=== PATIENT | male | born 1990 | race Caucasian/White ===

== ENCOUNTER 2020-03-17 20:38 | Inpatient (IN) | payer BC, MEDICAID, SELFPAY ==
[2020-03-17] VITALS (7 sets, daily range): BP systolic 124–138; BP diastolic 80–104; PULSE 102–136; RESP 14–36; TEMP 37.4; O2SAT 98–100
--- NOTE | ~2020-03-17 | XR_ITS ---
EXAMINATION: XR chest 1V portable EXAM DATE: 03/17/2020 23:54 INDICATION: Lactic acidosis. Confusion, hypokalemia. Gastroenteritis. TECHNIQUE: Portable AP frontal chest x-ray was obtained. There is no prior study for comparison. FINDINGS: The lungs are clear. There are no pleural effusions. The cardiomediastinal silhouette is within normal limits. There is no pneumothorax suspected. The bones and soft tissues are unremarkab le. IMPRESSION: Unremarkable chest x-ray exam. Reviewed, dictated and finalized at location G.
--- NOTE | ~2020-03-17 | CT_ITS ---
EXAMINATION: CT brain wo con EXAM DATE: 03/17/2020 21:18 INDICATION: Confusion. TECHNIQUE: Spiral CT of the head was performed without contrast. Axial, coronal and sagittal images were reviewed. The dose-length product (DLP) for this examination was 681.00 mGy-cm. The exposure w as tailored according to patient size, and iterative reconstruction (ASIR) was used as additional dos e reduction technique. There is no prior study for comparison. FINDINGS: There is no acute intraparenchymal hemorrhage. No evidence of intraparenchymal brain mass lesion. No evidence of acute infarction. There is no mass effect or midline shift. The ventricles are normal in size. There are no extra-axial collections. There are no acute calvarial fractures. T he orbits are unremarkable. Soft tissue is unremarkable. The visualized sinuses and mastoid air doris ls are well aerated. IMPRESSION: 1. Normal head CT examination. Reviewed, dictated and finalized at location A.
--- NOTE | ~2020-03-17 | XR_ITS ---
EXAMINATION: XR lumbar puncture diagnostic DATE: 03/18/2020 13:34 INDICATION: Encephalopathy TECHNIQUE: The procedure including the risks and benefits was discussed with the patient. Risks discu ssed included spinal headache, cerebrospinal fluid leak, bleeding, and infection. The patient underst ood the risks and agreed to proceed. A timeout was performed to verify the patient's name, date of , and procedure to be performed. The skin overlying the L4-L5 level was prepped and draped in usual sterile fashion. Subcutaneous 1% lidocaine was used for local anesthesia. A 22 gauge spinal n eedle was advanced under fluoroscopic guidance. The needle was removed and the entry site was cleaned and dressed. There were no immediate complications. FINDINGS: Real-time fluoroscopy demonstrates the needle at the L4-L5 level. Opening pressure was 11 c m water. (Normal range is variably defined as 6-20 cm water and up to 25 cm water in obese patients. Pressure >25 cm water is one of the modified Dandy criteria for idiopathic intracranial hypertension) . 13 mL of clear, colorless fluid was collected in 4 tubes. IMPRESSION: 1. Successful fluoro-guided lumbar puncture with opening pressure of 11 cm water and with collection of 13 mL clear colorless fluid. Reviewed, dictated and finalized at location A. IMPRESSION: 1. Successful fluoro-guided lumbar puncture with opening pressure of 11 cm wate r and with collection of 13 mL clear colorless fluid.
--- NOTE | ~2020-03-17 | US_ITS ---
EXAMINATION: US right upper quadrant DATE: 03/18/2020 09:08 INDICATION: Elevated liver function tests TECHNIQUE: Multiple grayscale and Doppler ultrasound images of the abdomen were obtained. COMPARISON: None available FINDINGS: The head and and body of the pancreas are normal. The pancreatic tail is obscured by bowel gas. The liver is normal with normal echogenicity and echotexture. No surface nodularity. Normal hepa topetal flow in the main portal vein. The gallbladder is normal with no abnormal wall thickening, per icholecystic fluid or stones. The normal common bile duct measures 4 mm. There was no sonographic Mur phy sign. IMPRESSION: 1. Normal sonographic study of the gallbladder. Reviewed, dictated and finalized at location A.
--- NOTE | 2020-03-17 20:45 | ECG_ITS ---
Measurements Intervals [place] Rate: 127 P: 67 W[place]: 149 QRS: 66 QRSD: 93 T: 49 QT: 367 QTc: 535 Interpretive Statements SINUS TACHYCARDIA MINIMAL Q WAVES- INFERIOR LEADS ANTEROLATERAL INFARCT, AGE INDETERMINATE NONSPECIFIC ST ABNORMALITY- INFERIOR LEADS BASELINE ARTIFACT- I, AVL ABNORMAL ECG Electronically Signed On 03-18-2020 7:45:35 CDT by Santino Caruso D.O.
--- NOTE | 2020-03-17 20:56 | ED.AMS ---
HPI - Altered Mental Status General Chief Complaint: Altered Mental Status Stated Complaint: AMS Time Seen by Provider: 03/17/20 20:48 History of Present Illness HPI narrative: Patient presents with his mother for confusion. She said that she was talking to him on the phone and then he did not know how he was. When I ask him why he is here he does not know. He denies any pain. He denies any illness. He does not know the year, where he, or his mother. His mother said he has been very sick with a stomach ulcer with vomiting and diarrhea. She said is not been eating. He was given medication that he vomited. 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 He has been losing weight. He was diagnosed ADHD in high school. His mother says that he is an alcoholic but has not had any alcohol since October. His surgical history includes circumcision and wisdom teeth. He smokes cigarettes but she does not know if he does drugs. complaint: altered mental status, confusion and decreased responsiveness Onset (ago): hour(s) Timing confirmed by: family member Severity: moderate Consistency of symptoms: constant Context: alcohol abuse, drug abuse and other (Vomiting and diarrhea) Associated symptoms: denies other symptoms Treatments prior to arrival: other (None) Related Data Allergies Allergy/AdvReac Type Severity Reaction Status Date / Time No Known Allergies Allergy Verified 01/21/20 15:13 Review of Systems Review of Systems: Narrative: The patient does not give a review of systems that can be relied on, since he is only oriented x1. His mother reports vomiting and diarrhea. [facility] Past Medical History Medical History ADHD Alcohol abuse Altered mental status Weight loss Surgical History Surgical History (Updated 03/17/20 @ 21:01 by Sushma Berger MD) History of circumcision History of wisdom tooth extraction Social History Social History (Updated 03/17/20 @ 21:02 by Sushma Berger MD) Smoking status: Current every day smoker Alcohol intake: current Substance use: current Substance use type: marijuana Exam Narrative: Exam Narrative: GENERAL: Very thin, disheveled, shaking, brown dirt on his left leg. HEAD: Normocephalic, atraumatic. EYES: PERRLA and EOMI. ENT: Nares clear, no rhinorrhea or epistaxis. Mucous membranes moist. NECK: Supple. CHEST: Clear to auscultation. No respiratory distress. HEART: Regular rate and rhythm. No murmur heard. Normal peripheral pulses. ABDOMEN: Soft, nontender, nondistended, normal active bowel sounds. EXTREMITIES: Normal range of motion. No edema. SKIN: Warm, dry, no rash. NEURO: No focal deficits. Alert and oriented x1. PSYCH: Odd affect, poor eye contact, single word answers. Course Reevaluation(s) Reevaluation #1: The patient wants to go outside and smoke, I told him he could not. I offered a nicotine patch and he accepts. He does not want the ABG. He now knows the location, the year, and his mother's name and phone number. He agrees to stay for admission for the vomiting diarrhea and low potassium. Date: 03/17/20 Time: 23:07 Vital Signs Vital signs: Vital Signs Temperature 99.3 F 03/17/20 20:37 Pulse Rate 125 H 03/17/20 20:37 Respiratory Rate 14 03/17/20 20:37 Blood Pressure 134/104 H 03/17/20 20:37 Pulse Oximetry 100 03/17/20 20:37 Temperature 99.3 F 03/17/20 20:37 Pulse Rate 125 H 03/17/20 20:37 Respiratory Rate 14 03/17/20 20:37 Blood Pressure 134/104 H 03/17/20 20:37 Pulse Oximetry 100 03/17/20 20:37 MDM - Altered Mental Status Differential Diagnosis Differential diagnosis: Likely alcoholic intoxication, altered mental status, hypoglycemia, hyponatremia and other (Drug intoxication) Medical Records Attestation: I reviewed the patient's medical records. Lab Data Attestation: I reviewed the patient's lab results. Result diagrams: 03/17/20 21:01
[2020-03-17] MEDS: ONDANSETRON INJ 4 MG/2 ML VIAL IV PUSH (21:07)
[2020-03-17 21:08] LABS: Basophils Absolute Auto 0.1 K/mm3 (0.0-0.1); Basophils Percent Auto 0.4 % (0.2-1.2); Eosinophils Percent Auto 0.1 % (0-4.4); Hematocrit 39.8 % (42.0-52.0); Hemoglobin 14.9 g/dL (14.0-18.0); Immature Granulocyte Absolute 0.08 K/mm3 (0.00-0.031); Immature Granulocyte Percent A 0.6 % (0-0.5); Lymphocytes Absolute Auto 1.24 K/mm3 (0.9-3.2); Lymphocytes Percent Auto 9.2 % (18.3-44.2); Mean Corpuscular HGB Conc 37.4 g/dl (32-36); Mean Corpuscular Hemoglobin 36.3 pg (26-34); Mean Corpuscular Volume 97.1 fl (80-100); Mean Platelet Volume 8.6 fl (7.4-10.4); Monocytes Absolute Auto 1.4 K/mm3 (0.1-0.6); Monocytes Percent Auto 10.4 % (2.6-8.5); Neutrophils Absolute Auto 10.7 K/mm3 (1.3-6.7); Neutrophils Percent Auto 79.3 % (45.5-73.1); Platelet Count Result 368 k/mm3 (150-375); Red Cell Distribution Width 15.2 % (11.5-14.5); White Blood Count 13.5 K/mm3 (4.5-10.0)
[2020-03-17] MEDS: FAMOTIDINE 20 MG/2 ML VIAL IV PUSH (21:08)
[2020-03-17] MEDS: SODIUM CHLORIDE 0.9% IV 1,000 ML 999 ML IV CONT ×2 (21:09→23:47)
[2020-03-17 21:15] LABS: Add Urine Microscopic? YES; Appearance Urine Clear (Clear); Bacteria Urine Trace /hpf; Bilirubin Urine Negative (Negative); Blood Urine Negative (Negative); Color Urine Yellow (Yellow); Glucose Urine UA Negative (Negative); Ketones Urine Trace mg/dL (Negative); Leukocyte Esterase Ur Negative LEU/UL (Negative); Mucus Urine Few /lpf; Nitrate Urine Negative (Negative); Protein Urine 1+ mg/dL (Negative); RBC Urine 0-2 /hpf (0-2); Specific Grav Ur 1.024 (1.001-1.035); WBC Urine 0-3 /hpf
[2020-03-17 21:20] LABS: Ethanol < 10 mg/dL (<10)
[2020-03-17 21:28] LABS: Albumin Level 4.3 g/dL (3.5-5.1); Alkaline Phosphatase 214 U/L (38-126); Amphetamine Screen Urine Negative (Negative); Anion Gap 21.6 mmol/L (7-16); Aspartate Amino Transferase 257 U/L (17-59); Barbiturate Screen Urine Negative (Negative); Benzodiazepines Screen Urine Negative (Negative); Bilirubin,Total 1.1 mg/dL (0.2-1.3); Blood Urea Nitrogen 3 mg/dL (9-20); Cannabinoid Screen Urine Negative (Negative); Carbon Dioxide 29 mmol/L (22-30); Chloride 82 mmol/L (98-107); Cocaine Screen Urine Negative (Negative); Estimated Glomerular Filt Rate > 60; Glucose 138 mg/dL (75-110); Lipase 212 U/L (23-300); Methadone Screen Urine Negative (Negative); Opiate Screen Urine Negative (Negative); Phencyclidine Screen Urine Negative (Negative); Potassium 2.6 mmol/L (3.4-5.0); Sodium 130 mmol/L (137-145)
[2020-03-17 21:32] LABS: Alanine Aminotransferase 125 U/L (4-50)
[2020-03-17] MEDS: METOCLOPRAMIDE HCL INJ 10 MG/2 ML VIAL IV PUSH (21:56)
[2020-03-17 22:11] LABS: Ammonia < 9 umol/L (9-30)
--- NOTE | 2020-03-17 23:08 | PCRCNOTE ---
Patient refused ABG collection. Procedure was explained, but patient refused. Dr. Berger is aware of the refusal. -Jany Funk MS, ORTHODONTIC LABORATORY TECHNICIAN
[2020-03-17 23:33] LABS: Lactic Acid 4.3 mmol/L (0.7-2.1)
[2020-03-17] MEDS: NICOTINE (*PBKC) 21 MG PATCH 1 PATCH TRANSDERM (23:47)
[2020-03-18] VITALS (21 sets, daily range): BP systolic 129–164; BP diastolic 77–108; PULSE 63–119; RESP 11–98; TEMP 36.4–37.1; O2SAT 93–100; BMI 17.2
[2020-03-18] MEDS: SODIUM CHLORIDE 0.9% IV 1,000 ML 125 ML IV CONT (00:29)
--- NOTE | 2020-03-18 02:25 | PC.NURSE ---
Addendum entered by Cira Bell RN 03/18/20 03:45: pt became more agitated and ready to go. Code purple called and per Dr. Lewis 1mg of ativan given. pt calmed down and was resting at the time of transfer to ICU Original Note: pt
--- NOTE | 2020-03-18 04:18 | PM.IMHP ---
H&P: HPI History of Present Illness Date/Time: 03/18/20 04:18 Chief complaint: hypokalemia, gastroenteritis Narrative: This is a 29 year old male who presented to the hospital with a complaint of altered mental status. Apparently the patient was talking to his mother over the phone when she noticed that he wasn't making sense. The patient himself is quite confused and continually will ask questions like Where am I? after he is told 1 minute ago that he is in the hospital. The patient's mother had reported to ER provider that the patient recently has been sick with a stomach ulcer and has had diarrhea and vomiting. Apparently he was working up until 4 days ago. His last reported alcoholic drink was in During my encounter with the patient he continually asks if he can leave and is attempting to pull out his IV and leave. Routine labs obtained in the ER demonstrated mild leukocytosis, dehdyration, metabolic acidosis and hypokalemia. The patient was treated with IV fluids and a K rider. The patient currently denies any pain, fevers, chills, headache, blurry vision, shortness of breath, cough, sore throat, abdominal pain, dysuria, hematuria, or rectal bleeding. No other complaints. Review of Systems Review of Systems: All systems reviewed & are unremarkable except as noted in HPI and below PMFSH Past Medical History Medical History ADHD Alcohol abuse Altered mental status Weight loss Surgical History Surgical History History of circumcision History of wisdom tooth extraction Family History Family History Father Diabetes mellitus Social History Social History Smoking status: Current every day smoker Alcohol intake: current Substance use: current Substance use type: marijuana Spiritual care concerns: No Meds Home Medications and Allergies Home Medications Medication Instructions Recorded Confirmed Type fluticasone propionate 50 2 spray NASAL DAILY #15.8 ml 01/21/20 03/18/20 Rx mcg/actuation nasal spray,suspension omeprazole 20 mg capsule,delayed 20 mg PO DAILY #30 cap 03/13/20 03/18/20 Rx release sucralfate 1 gram tablet 1 gm PO .COMPLEX #40 tablet 03/13/20 03/18/20 Rx Allergies Allergy/AdvReac Type Severity Reaction Status Date / Time No Known Allergies Allergy Verified 01/21/20 15:13 Vital Signs Vital Signs - 24 hr 03/17/20 20:37 03/17/20 20:46 03/17/20 21:01 Temperature 37.4 C Pulse Rate 125 H 129 H 136 H Respiratory Rate 14 15 14 Blood Pressure 134/104 H 132/97 H 126/96 H Pulse Oximetry 100 99 99 03/17/20 22:27 03/17/20 23:31 03/17/20 23:46 Temperature Pulse Rate 102 H 106 H 109 H Respiratory Rate 20 36 H 16 Blood Pressure 124/86 136/90 138/96 H Pulse Oximetry 98 98 99 03/17/20 23:51 03/18/20 00:10 Temperature 36.9 C Pulse Rate 109 H 107 H Respiratory Rate 22 H 16 Blood Pressure 130/80 153/93 H Pulse Oximetry 99 100 Exam Const: General: alert, awake and confusion Nutritional Appearance: well nourished Orientation/consciousness: oriented to person HENMT: Head: normal to inspection General nose exam: Normal external nose present Face and sinus: normal facial exam Mouth: Yes Normal oral and palatal mucosa present and Yes oropharynx normal Eyes: Pupils: Equal, round and reactive pupils present EOM: EOMs intact bilaterally Neck: Neck: supple and no JVD Thyroid: thyroid normal Lymphatic: lymphadenopathy not noted Resp: Effort & Inspection: normal respiratory effort Auscultation: clear to auscultation bilaterally Cardio: Rate: regular rate Rhythm: regular rhythm Heart sounds: no murmurs GI: Inspection: normal to inspection Auscultation: normal bowel sounds Skin: General skin exam: normal color and no rashes
--- NOTE | 2020-03-18 04:29 | PC.NURSE ---
This patient, Royce Bullard, was received from [facility] on 03/18/20 at 0308. Personal belongings list checked and signed. Patient/family oriented to unit policies and routines
[2020-03-18] MEDS: SODIUM CHLORIDE 0.9% IV 1,000 ML 120 ML IV CONT ×3 (04:52→20:12)
[2020-03-18 04:54] LABS: Basophils Percent Auto 0.3 % (0.2-1.2); Eosinophils Percent Auto 0.2 % (0-4.4); Hematocrit 34.8 % (42.0-52.0); Hemoglobin 12.9 g/dL (14.0-18.0); Immature Granulocyte Absolute 0.07 K/mm3 (0.00-0.031); Immature Granulocyte Percent A 0.5 % (0-0.5); Lymphocytes Absolute Auto 1.84 K/mm3 (0.9-3.2); Mean Corpuscular HGB Conc 37.1 g/dl (32-36); Mean Corpuscular Hemoglobin 36.1 pg (26-34); Mean Corpuscular Volume 97.5 fl (80-100); Mean Platelet Volume 8.6 fl (7.4-10.4); Monocytes Absolute Auto 1.5 K/mm3 (0.1-0.6); Monocytes Percent Auto 10.4 % (2.6-8.5); Neutrophils Absolute Auto 10.7 K/mm3 (1.3-6.7); Neutrophils Percent Auto 75.6 % (45.5-73.1); Platelet Count Result 300 k/mm3 (150-375); Red Blood Count 3.57 M/mm3 (4.6-6.20); Red Cell Distribution Width 14.7 % (11.5-14.5); White Blood Count 14.2 K/mm3 (4.5-10.0)
--- NOTE | 2020-03-18 05:09 | PC.NURSE ---
AT 0445, PATIENT BECAME VERY CONFUSED TO WHAT IS GOING ON. ORIENTED TO PERSON, PLACE, AND TIME BUT DOESN'T UNDERSTAND WHAT IS HAPPENING DESPITE MULTIPLE EXPLANATIONS FROM THIS RN. REMAINS COOPERATIVE. LABS AND ABGS BEING DRAWN. BED ALARM ON.
[2020-03-18 05:16] LABS: Magnesium 1.4 mg/dL (1.6-2.3)
[2020-03-18 05:17] LABS: Anion Gap 9.8 mmol/L (7-16); Calcium 8.1 mg/dL (8.4-10.2); Carbon Dioxide 32 mmol/L (22-30); Chloride 91 mmol/L (98-107); Estimated CRCL calculation 130 ml/min; Estimated Glomerular Filt Rate > 60; Glucose 100 mg/dL (75-110); Potassium 2.8 mmol/L (3.4-5.0); Sodium 130 mmol/L (137-145)
[2020-03-18 05:19] LABS: Alveolar/Arterial O2 Gradient 21.2 mmHg; Base Excess ABG 2.8 mEq/l (+/-2.0); Fractional Inspired Oxygen 21 %; HCO3 ABG 25.1 mEq/l (22.0-26.0); Oxygen Content ABG 18.2 %vol (16.0-22.0); Oxygen Saturation ABG 97.7 % (95.0-100.0); Oxyhemoglobin 95.6 % THb (90.0-100.0); PCO2 ABG 31.4 mmHg (35.0-45.0); PO2 ABG 90.9 mmHg (80.0-100.0); PO2 FiO2 Ratio Arterial Blood 4.33 %; Total Hemoglobin 13.5 g/dL (12.0-18.0)
[2020-03-18 05:20] LABS: Blood Urea Nitrogen < 2 mg/dL (9-20)
[2020-03-18 05:21] LABS: Device ROOM AIR; Modified Allen's Test Pass; Site Drawn RIGHT RADIAL
[2020-03-18] MEDS: MAGNESIUM SULF 2 GM/WATER 50ML 2 GM/50 ML BAG IVPB (05:55)
[2020-03-18] MEDS: LACTATED RINGERS 1,000 ML 999 ML IV CONT (09:30)
--- NOTE | 2020-03-18 10:04 | WPDGICN ---
Assessment and Plan Assessment and plan (1) Acute encephalopathy: Code(s): G93.40 - Encephalopathy, unspecified Status: Acute Assessment and Plan: Patient appears to have acute altered mental status etiology remains unclear. His serum ammonia level is normal. Tox screen currently negative. Elevated LFTs suggesting may have been exposed to some agent recently. Will continue monitor in the ICU per wheel buffer. Neurology to see the patient. (2) Elevated liver enzymes: Code(s): R74.8 - Abnormal levels of other serum enzymes Status: Acute Assessment and Plan: Patient's LFTs are noted to be elevated. Total bilirubin 1.1, AST 257, ALT 125, alk-phos 214, etiology of this elevation of LFTs is uncertain. Plan is to check laboratory work including hepatitis serologies to further evaluate. It imaging of the liver including gallbladder ultrasound right upper quadrant ultrasound is unremarkable at this time we will continue monitor LFTs with additional testing as results become available. (3) Nausea and vomiting: Qualifiers: Vomiting type: unspecified Vomiting Intractability: non-intractable Qualified Code(s): R11.2 - Nausea with vomiting, unspecified Code(s): R11.2 - Nausea with vomiting, unspecified Status: Acute Assessment and Plan: Patient apparently has had some nausea and vomiting as an outpatient for which she was empirically given the diagnosis gastritis. Currently he exhibits none of these findings. Will continue monitor closely. At this time would treat empirically with acid suppression. GI Consult Note Consult date/time: 03/18/20 10:04 HPI: Royce Bullard is a 29 year old male Seen in evaluation at the request of the emergency room. Patient presents with confusion and altered mental status. patient is unable to give any additional history just stating he is confused does not know where he is. Patient apparently was working until 4 days ago. He was speaking with his mother on the phone who realized he was very confused. Patient's records repeat reflect that he was seen by his primary care physician approximately 4 days ago at that time Maricarmen player and of some anorexia epigastric discomfort was empirically given the diagnosis of gastritis and prescribed Carafate and omeprazole. It is unclear if he took these medications patient on questioning denies any drug use he denies taking any [id number] or prescription medications. He does not appear to know where he is at the present time period not well oriented. Since admission the hospital no nausea or vomiting has been encountered period is asking for food her liquid intake at this time. Review of Systems Review of Systems: ROS unobtainable: Yes unobtainable due to mental status PMFSH Past Medical History Medical History ADHD Alcohol abuse Altered mental status Weight loss Surgical History Surgical History History of circumcision History of wisdom tooth extraction Family History Family History Father Diabetes mellitus Social History Social History Smoking status: Current every day smoker Alcohol intake: current Substance use: current Substance use type: marijuana Meds Home Medications and Allergies Home Medications Medication Instructions Recorded Confirmed Type fluticasone propionate 50 2 spray NASAL DAILY #15.8 ml 01/21/20 03/18/20 Rx mcg/actuation nasal spray,suspension omeprazole 20 mg capsule,delayed 20 mg PO DAILY #30 cap 03/13/20 03/18/20 Rx release sucralfate 1 gram tablet 1 gm PO .COMPLEX #40 tablet 03/13/20 03/18/20 Rx Allergies Allergy/AdvReac Type Severity Reaction Status Date / Time No Known Allergies Allergy Verified
[2020-03-18 10:57] LABS: Hepatitis B Surface Antigen Negative (Negative)
[2020-03-18 11:04] LABS: HAV RESULT Negative (Negative); Hepatitis B Core IgM Result Negative (Negative)
[2020-03-18 11:14] LABS: Hepatitis C Virus Antibody Negative (Negative)
[2020-03-18 11:29] LABS: INR 1.1; Prothrombin Time 13.7 Seconds (11.1-14.7)
--- NOTE | 2020-03-18 11:36 | WPDCNINT ---
Assessment and Plan Assessment and plan (1) Acute encephalopathy: Code(s): G93.40 - Encephalopathy, unspecified Status: Acute Assessment and Plan: patient with acute encephalopathy of unknown etiology. Could be related to infection, metabolic derangement, stroke - CT scan of the brain was negative for acute intracranial abnormalities - interventional radiology to perform LP, after obtaining PT PTT and INR - sodium level of 130, could also be causing some confusion, continue normal saline - ammonia levels are well within normal limits ( ammonia level is <9) - will have SARS-CoV-2 PCR swab done as COVID-19 can sometimes present with delirium and encephalopathy - neurology and infectious disease team has been consulted (2) Nausea and vomiting: Qualifiers: Vomiting type: unspecified Vomiting Intractability: non-intractable Qualified Code(s): R11.2 - Nausea with vomiting, unspecified Code(s): R11.2 - Nausea with vomiting, unspecified Status: Acute Assessment and Plan: patient had seen his primary care doctor approximately 4 days prior to admission for epigastric discomfort and anorexia and was impractical given thick diagnosis of gastritis and prescribed Carafate and omeprazole. - Nausea and vomiting have resolved since admission - continue to treat empirically with acid suppression per (3) Hypokalemia: Code(s): E87.6 - Hypokalemia Status: Acute Assessment and Plan: likely secondary to diarrhea and vomiting - potassium being aggressively replace (4) Elevated liver enzymes: Code(s): R74.8 - Abnormal levels of other serum enzymes Status: Acute Assessment and Plan: elevated liver enzymes be related to alcoholic liver disease or some agent that he may have been exposed to recently. - Right upper quadrant ultrasound 03/18/2020 showed normal liver with no surface nodularity, normal hepatic fluid the main portal vein. The gallbladder is normal with no abnormal wall thickening with pericholecystic fluid or stones. The normal common bile duct measures 4 mm, overall normal sonographic study of the gallbladder. The head and body of the pancreas are normal, the tail of the pancreas is obscured by bowel gas. - GI is following will continue to monitor liver enzymes, bilirubin (5) Alcohol abuse: Code(s): F10.10 - Alcohol abuse, uncomplicated Status: Acute Assessment and Plan: history of alcohol abuse, according the mother the last drink was in October 2019 (6) Acidosis, lactic: Code(s): E87.2 - Acidosis Status: Acute Assessment and Plan: patient with a lactic acidosis, adequately fluid-resuscitated could be related to hypovolemia from decreased p.o. intake and decreased and on good perfusion - received IV fluids, will give another bolus here in the ICU this morning - lactic acid has normalized (7) DVT prophylaxis: Code(s): Z29.9 - Encounter for prophylactic measures, unspecified Status: Acute Assessment and Plan: SCDs Additional Plan discussed with mother at bedside and updated her with patient's condition and plan of care. She is aware the time could be working her up for infectious Cause, patient will be getting a lumbar puncture, GI will be following the patient and so will Neurology. I did discuss with her the lab and radiology reports and answered all her questions code status: Full code critical care time spent: 43 minutes Due to a high probability of clinically significant, life threatening deterioration, the patient required my highest level of preparedness to intervene emergently and I personally spent this critical care time directly and personally managing the patient. This critical care time included obtaining a history; examining the patient; pulse oximetry; ordering and review of studies; arranging urgent treatment with development of a management plan; evaluation of
--- NOTE | 2020-03-18 13:09 | WPDPN ---
Objective Data Vital Signs Vital Signs: Vital Signs - 24 hr 03/17/20 20:37 03/17/20 20:46 03/17/20 21:01 Temperature 37.4 C Pulse Rate 125 H 129 H 136 H Respiratory Rate 14 15 14 Blood Pressure 134/104 H 132/97 H 126/96 H Pulse Oximetry 100 99 99 03/17/20 22:27 03/17/20 23:31 03/17/20 23:46 Temperature Pulse Rate 102 H 106 H 109 H Respiratory Rate 20 36 H 16 Blood Pressure 124/86 136/90 138/96 H Pulse Oximetry 98 98 99 03/17/20 23:51 03/18/20 00:10 03/18/20 03:20 Temperature 36.9 C 36.8 C Pulse Rate 109 H 107 H 101 H Respiratory Rate 22 H 16 18 Blood Pressure 130/80 153/93 H 137/98 H Pulse Oximetry 99 100 99 03/18/20 04:00 03/18/20 05:43 03/18/20 06:00 Temperature 36.8 C Pulse Rate 111 H 113 H 91 Respiratory Rate 15 14 19 Blood Pressure 138/97 H 129/90 Pulse Oximetry 98 99 03/18/20 07:57 03/18/20 08:00 03/18/20 10:00 Temperature 37.0 C Pulse Rate 99 100 82 Respiratory Rate 19 14 19 Blood Pressure 138/102 H 144/108 H Pulse Oximetry 100 100 03/18/20 11:43 03/18/20 12:00 Temperature Pulse Rate 86 89 Respiratory Rate 19 15 Blood Pressure Pulse Oximetry 100 Intake/Output Intake/Output: Intake & Output 03/15/20 03/16/20 03/17/20 03/18/20 23:59 23:59 23:59 23:59 Intake Total 1000 2100 Output Total 1450 Balance 1000 650 Meds/Results Medications: Active Medications Generic Name Dose Route Start Last Admin Trade Name Freq PRN Reason Stop Dose Admin Famotidine 20 mg 03/18/20 11:55 Pepcid Iv IV PUSH Q12HR CARLOS Dexmedetomidine HCl 400 mcg in 100 mls @ 3.728 mls/hr 03/18/20 03:20 03/18/20 11:43 Precedex 400 Mcg/100 Ml IV CONT 0.3 mcg/kg/hr .[id number] CARLOS 3.7 mls/hr Titration Protocol 0.3 MCG/KG/HR Sodium Chloride 1,000 mls @ 120 mls/hr 03/18/20 12:05 Normal Saline Iv IV CONT 03/22/20 12:06 .[id number] CARLOS Nicotine 1 patch 03/18/20 09:00 03/18/20 11:56 Nicoderm Cq 21 Mg TRANSDERM Not Given QAM CARLOS Ondansetron HCl 4 mg 03/17/20 22:57 Zofran Inj IV PUSH Q4H PRN Nausea Radiology Results: ITS Impressions Head CT 03/17/20 21:19 IMPRESSION: 1. Normal head CT examination. Chest X-Ray 03/17/20 23:57 IMPRESSION: Unremarkable chest x-ray exam. Upper Quadrant Ultrasound 03/18/20 09:12 IMPRESSION: 1. Normal sonographic study of the gallbladder. Labs Labs: Laboratory Results - last 24 hr 03/17/20 03/17/20 03/17/20 20:59 20:59 21:01 WBC 13.5 H RBC 4.10 L Hgb 14.9 Hct 39.8 L MCV 97.1 MCH 36.3 H MCHC 37.4 H RDW 15.2 H Plt Count 368 D MPV 8.6 Immature Gran % (Auto) 0.6 H Neut % (Auto) 79.3 H Lymph % (Auto) 9.2 L [place] % (Auto) 10.4 H Eos % (Auto) 0.1 Baso % (Auto) 0.4 Lymph # (Auto) 1.24 [place] # (Auto) 1.4 H Eos # (Auto) 0.0 Baso # (Auto) 0.1 Abs Immat Gran (auto) 0.08 H Absolute Neuts (auto) 10.7 H Absolute Nucleated RBC 0.0 Nucleated RBC % 0.0 PT INR APTT Puncture Site ABG pH ABG pCO2 ABG pO2 ABG PO2/FiO2 Ratio ABG HCO3 ABG O2 Saturation ABG O2 Content ABG Base Excess A-a Gradient Oxyhemoglobin Total Hemoglobin O2 Delivery Device O2 Liters/Min FiO2 Sodium Potassium Chloride Carbon Dioxide Anion Gap BUN Creatinine Estim Creat Clear Calc Estimated GFR Glucose Lactic Acid Calcium Magnesium Total Bilirubin AST ALT Alkaline Phosphatase Ammonia Total Protein Albumin Lipase Vitamin B12 Folate TSH (Reflex) Urine Color Yellow Urine Appearance Clear Urine pH 6.0 Ur Specific [place] 1.024 Urine Protein 1+ H Urine Glucose (UA) Negative Urine Ketones Trace Ur Blood (Man) Negative Urine Nitrate Negative Urine Bilirubin Negative Urine Urobilinogen 2.0 H Leukocyte Esterase Rfl Negative
[2020-03-18 13:31] LABS: Glucose CSF 71 mg/dL (40-70); Total Protein CSF 113 mg/dL (12-60)
[2020-03-18 13:35] LABS: Appearance CSF Clear (Clear); CSF source CSF; Color CSF Colorless (Colorless)
[2020-03-18 13:46] LABS: Nucleated Cell CSF 3 /uL (0-5); Red Blood Cell CSF 3 (0-2)
--- NOTE | 2020-03-18 15:19 | WPDNEURCNPN ---
Assessment and Plan Assessment and plan (1) Nausea and vomiting: Qualifiers: Vomiting type: unspecified Vomiting Intractability: non-intractable Qualified Code(s): R11.2 - Nausea with vomiting, unspecified Code(s): R11.2 - Nausea with vomiting, unspecified Status: Acute (2) Acute encephalopathy: Code(s): G93.40 - Encephalopathy, unspecified Status: Acute (3) Hypokalemia: Code(s): E87.6 - Hypokalemia Status: Acute (4) Gastroenteritis: Code(s): K52.9 - Noninfective gastroenteritis and colitis, unspecified Status: Acute (5) Acidosis, lactic: Code(s): E87.2 - Acidosis Status: Acute (6) Altered mental status: Qualifiers: Altered mental status type: unspecified Qualified Code(s): R41.82 - Altered mental status, unspecified Code(s): R41.82 - Altered mental status, unspecified Status: Acute (7) Weight loss: Code(s): R63.4 - Abnormal weight loss Status: Acute (8) Smoking: Code(s): F17.200 - Nicotine dependence, unspecified, uncomplicated Status: Acute (9) Alcohol abuse: Code(s): F10.10 - Alcohol abuse, uncomplicated Status: Acute (10) Gastritis: Qualifiers: Gastritis type: unspecified gastritis Chronicity: acute Gastritis bleeding: without bleeding Qualified Code(s): K29.00 - Acute gastritis without bleeding Code(s): K29.70 - Gastritis, unspecified, without bleeding Status: Acute (11) Allergic rhinitis: Qualifiers: Allergic rhinitis trigger: other Allergic rhinitis seasonality: seasonal Qualified Code(s): J30.89 - Other allergic rhinitis Code(s): J30.9 - Allergic rhinitis, unspecified Status: Acute (12) Elevated liver enzymes: Code(s): R74.8 - Abnormal levels of other serum enzymes Status: Acute (13) Alcohol withdrawal: Code(s): F10.239 - Alcohol dependence with withdrawal, unspecified Status: Acute Additional Plan patient's all laboratory analysis and his mental status points to her the chronic alcohol abuse and daughter drugs at this point present management needs to be continued a brain MRI most likely will be needed somewhere down the line Consult date: 03/18/20 Time Seen: 14:30 HPI: Royce Bullard is a 29 year old male who is admitted with a change in mental status of which is rather acute has already gone the spinal fluid analysis the preliminary results are fairly decent negative he would need the brain MRI to make sure what else is happen otherwise the patient has has a nonfocal examination Review of Systems Review of Systems: All systems reviewed & are unremarkable except as noted in HPI and below PMFSH Past Medical History Medical History ADHD Alcohol abuse Altered mental status Weight loss Surgical History Surgical History History of circumcision History of wisdom tooth extraction Family History Family History Father Diabetes mellitus Social History Social History Smoking status: Current every day smoker Alcohol intake: current Substance use: current Substance use type: marijuana Spiritual care concerns: No Meds Home Medications and Allergies Home Medications Medication Instructions Recorded Confirmed Type fluticasone propionate 50 2 spray NASAL DAILY #15.8 ml 01/21/20 03/18/20 Rx mcg/actuation nasal spray,suspension omeprazole 20 mg capsule,delayed 20 mg PO DAILY #30 cap 03/13/20 03/18/20 Rx release sucralfate 1 gram tablet 1 gm PO .COMPLEX #40 tablet 03/13/20 03/18/20 Rx Allergies Allergy/AdvReac Type Severity Reaction Status Date / Time No Known Allergies Allergy Verified 01/21/20 15:13 Vital Signs Vital Signs - 24 hr
[2020-03-18] MEDS: FAMOTIDINE 20 MG/2 ML VIAL IV PUSH ×2 (15:21→20:12)
--- NOTE | 2020-03-18 20:00 | PC.NURSE ---
Pt called RN in room stating he believed there to be something awful in the corner of room. Patient visibly afraid. Lights turned on revealed bag of personal items. Pt states he does not know if that is what he was afraid of. Pt forgot why he called while this RN was in room. Patient helped back to bed. Night light left on for patient comfort.
[2020-03-18] MEDS: HALOPERIDOL LACTATE 5 MG/ML VIAL IM (22:31)
--- NOTE | 2020-03-18 22:38 | PC.NURSE ---
Pt became agitated with increasing anxiety despite increase on precedex. Pt self removed both IVs while attempting to leave bed. MI[employer] APPLICATION DEVELOPER Roselyn on unit and able to assess pt at [facility] at this time. Orders placed. During episode memory does seem somewhat improved, with him being able to recall his place of employment, location of residence and his issues with alcohol. He could not recall these earlier in the shift.
--- NOTE | 2020-03-18 23:09 | PC.NURSE ---
Patient continues agitation and is unable to be redirected for any length of time due to short term memory impairment. Pt attempting to remove Iv. AMER[employer]DI[employer] POLICY SPECIALIST Chelsea on floor and able to assess pt at bedside. Orders placed.
[2020-03-18] MEDS: diphenhydrAMINE HCl INJ 50 MG/ML VIAL IV PUSH (23:23)
[2020-03-19] VITALS (13 sets, daily range): BP systolic 91–156; BP diastolic 55–125; PULSE 40–100; RESP 12–24; TEMP 36.7–37.1; O2SAT 93–100
[2020-03-19 00:24] LABS: SARS-CoV-2 RNA PCR Negative
--- NOTE | 2020-03-19 03:56 | PC.NURSE ---
Patient agitation returned with continued attempts to leave bed and remove IV access. Orders for soft restraints obtained from nail feeder. Pt continues to leave bed in soft restraints. [employer] Operations Intelligence Officer aware.
[2020-03-19 04:47] LABS: Basophils Percent Auto 0.5 % (0.2-1.2); Eosinophils Absolute Auto 0.2 K/mm3 (0-0.3); Eosinophils Percent Auto 1.9 % (0-4.4); Hematocrit 36.2 % (42.0-52.0); Immature Granulocyte Absolute 0.02 K/mm3 (0.00-0.031); Immature Granulocyte Percent A 0.3 % (0-0.5); Lymphocytes Absolute Auto 1.85 K/mm3 (0.9-3.2); Lymphocytes Percent Auto 23.4 % (18.3-44.2); Mean Corpuscular HGB Conc 35.9 g/dl (32-36); Mean Corpuscular Hemoglobin 36.9 pg (26-34); Mean Corpuscular Volume 102.8 fl (80-100); Mean Platelet Volume 8.9 fl (7.4-10.4); Monocytes Absolute Auto 0.7 K/mm3 (0.1-0.6); Monocytes Percent Auto 9.1 % (2.6-8.5); Neutrophils Absolute Auto 5.1 K/mm3 (1.3-6.7); Neutrophils Percent Auto 64.8 % (45.5-73.1); Platelet Count Result 263 k/mm3 (150-375); Red Blood Count 3.52 M/mm3 (4.6-6.20); White Blood Count 7.9 K/mm3 (4.5-10.0)
[2020-03-19 05:05] LABS: Lactic Acid 1.3 mmol/L (0.7-2.1)
[2020-03-19 05:10] LABS: Anion Gap 11.6 mmol/L (7-16); Blood Urea Nitrogen 3 mg/dL (9-20); CRP < 0.5 mg/dL (<1.0); Calcium 8.3 mg/dL (8.4-10.2); Carbon Dioxide 25 mmol/L (22-30); Chloride 103 mmol/L (98-107); Estimated CRCL calculation 130 ml/min; Estimated Glomerular Filt Rate > 60; Glucose 114 mg/dL (75-110); Magnesium 2.2 mg/dL (1.6-2.3); Phosphorus 2.6 mg/dL (2.5-4.5); Potassium 3.6 mmol/L (3.4-5.0); Sodium 136 mmol/L (137-145)
--- NOTE | 2020-03-19 06:18 | PC.NURSE ---
Pt agitation continues with patient becoming belligerent upon waking. Continued attempts to leave bed and remove IV while in soft restraints.
--- NOTE | 2020-03-19 06:42 | PC.NURSE ---
Pt agitation continuing. Pt phone rang and request to speak to girlfriend, who was calling. Pt was given phone and able to speak on phone while maintaining soft restraints. At some point the patient was able to call 911. bakery machine mechanic supervisor called and made aware. Patient continuing to attempt to leave bed and self remove IV access.
[2020-03-19] MEDS: HALOPERIDOL LACTATE 5 MG/ML VIAL (07:13)
[2020-03-19 09:11] LABS: Alanine Aminotransferase 80 U/L (4-50); Albumin Level 3.2 g/dL (3.5-5.1); Alkaline Phosphatase 163 U/L (38-126); Anion Gap 8.4 mmol/L (7-16); Aspartate Amino Transferase 101 U/L (17-59); Bilirubin,Total 1.9 mg/dL (0.2-1.3); Blood Urea Nitrogen 4 mg/dL (9-20); Calcium 8.3 mg/dL (8.4-10.2); Carbon Dioxide 27 mmol/L (22-30); Chloride 101 mmol/L (98-107); Estimated CRCL calculation 107 ml/min; Estimated Glomerular Filt Rate > 60; Glucose 110 mg/dL (75-110); Potassium 3.4 mmol/L (3.4-5.0); Sodium 133 mmol/L (137-145)
--- NOTE | 2020-03-19 10:17 | WPDGIPROGNO ---
Progress Note: A&P Additional Plan Patient remains confused. Nursing staff feel that he is improving. No longer with nausea and vomiting. Physical exam reveals lungs to be clear. Heart without murmur. Abdomen bowel sounds are present soft nontender with no organomegaly. Impression 1. Elevated LFTs. Transaminases have declined some period etiology remains unclear. Suspect toxic exposure. Patient denies any recent alcohol intake. Although he does drink whiskey on occasion. Infectious process cannot be excluded. 2. Nausea vomiting. Initial complaints to his primary care service these have resolved. Likely related to his toxic exposure. 3. Mental status changes. Etiology unclear. Slowly improving. Neurological workup in progress. Subjective Date/time seen: 03/19/20 10:17 Objective Data Vital Signs Vital Signs: Vital Signs - 24 hr 03/18/20 11:43 03/18/20 12:00 03/18/20 12:35 Temperature 98.0 F Pulse Rate 86 90 87 Respiratory Rate 19 11 L 16 Blood Pressure 144/97 H 138/102 H Pulse Oximetry 99 95 03/18/20 13:10 03/18/20 14:00 03/18/20 16:00 Temperature 97.6 F Pulse Rate 99 83 89 Respiratory Rate 18 19 18 Blood Pressure 135/94 H 141/105 H 133/104 H Pulse Oximetry 98 99 100 03/18/20 16:18 03/18/20 18:00 03/18/20 20:00 Temperature 98.5 F Pulse Rate 78 78 73 Respiratory Rate 22 H 23 H Blood Pressure 132/98 H 164/77 H Pulse Oximetry 99 93 03/18/20 20:12 03/18/20 22:00 03/18/20 22:14 Temperature 98.7 F Pulse Rate 99 108 H 100 Respiratory Rate 20 26 H 26 H Blood Pressure 140/90 Pulse Oximetry 100 03/18/20 22:32 03/19/20 00:00 03/19/20 02:00 Temperature 98.3 F Pulse Rate 100 73 82 Respiratory Rate 26 H 16 22 H Blood Pressure 140/100 H 156/108 H Pulse Oximetry 93 98 03/19/20 04:00 03/19/20 06:00 03/19/20 07:44 Temperature 98.5 F 98.3 F Pulse Rate 40 L 90 60 Respiratory Rate 12 20 19 Blood Pressure 147/111 H 141/68 H 155/125 H Pulse Oximetry 98 98 100 03/19/20 10:00 Temperature Pulse Rate 71 Respiratory Rate 19 Blood Pressure 127/96 H Pulse Oximetry 100 Intake/Output Intake/Output: Intake & Output 03/16/20 03/17/20 03/18/20 03/19/20 23:59 23:59 23:59 23:59 Intake Total 1000 3940 600 Output Total 4350 900 Balance 1000 -410 -300 Meds/Results Medications: Active Medications Generic Name Dose Route Start Last Admin Trade Name Freq PRN Reason Stop Dose Admin Famotidine 20 mg 03/18/20 11:55 03/18/20 20:12 Pepcid Iv IV PUSH 20 mg Q12HR CARLOS Administration Dexmedetomidine HCl 400 mcg in 100 mls @ 18.638 mls/hr 03/18/20 03:20 03/19/20 06:41 Precedex 400 Mcg/100 Ml IV CONT 1.5 mcg/kg/hr .Q5H22M CARLOS 18.6 mls/hr Administration Protocol 1.5 MCG/KG/HR Sodium Chloride 1,000 mls @ 120 mls/hr 03/18/20 12:05 03/19/20 05:46 Normal Saline Iv IV CONT 03/22/20 12:06 120 mls/hr .Q8H20M CARLOS Infusion Nicotine 1 patch 03/18/20 09:00 03/18/20 11:56 Nicoderm Cq 21 Mg TRANSDERM Not Given QAM CARLOS Ondansetron HCl 4 mg 03/17/20 22:57 Zofran Inj IV PUSH Q4H PRN Nausea Radiology Results: ITS Impressions Head CT 03/17/20 21:19 IMPRESSION: 1. Normal head CT examination. Chest X-Ray 03/17/20 23:57 IMPRESSION: Unremarkable chest x-ray exam. Upper Quadrant Ultrasound 03/18/20 09:12 IMPRESSION: 1. Normal sonographic study of the gallbladder. Lumbar Puncture Fluoroscopy 03/18/20 13:55 IMPRESSION: 1. Successful fluoro-guided lumbar puncture with opening pressure of 11 cm water and with collection of 13 mL clear colorless fluid. Labs Labs: Laboratory Results - last 24 hr 03/18/20 03/18/20 03/18/20 08:19 11:08 11:08 WBC RBC Hgb Hct MCV MCH MCHC RDW Plt Count MPV Immature Gran % (Auto) Neut % (Auto) Lymph % (Auto) [place] % (Auto) Eos % (Auto) Baso % (Auto) Lymph # (Auto
--- NOTE | 2020-03-19 11:24 | PCFNICU ---
ICU Rounding Note: Pt current nutrition is Full Liquids. Nutrition recommendation: Agree Last recorded weight is 48kg. Bowel Motility:+BM noted 03/19 Labs Reviewed:Hgb 13.0,Hct 36.2, BUN 3,Cr 0.5,AST 1.9,ALT 101 Meds Noted:Pepcid, Precedex, NS at 120 ml/hr Additional Notes: Patient tolerated clear liquid diet well today, advancing to full liquid with Ensure Enlive BID for an additional 350 kcals and 20 gms protein. Family is reporting a weight loss of 20-30 ibs since December 2019. HIV testing has been ordered. No nausea or vomiting reported today. Following daily in ICU rounds. Assessing/reassessing every 3 days.
[2020-03-19] MEDS: FAMOTIDINE 20 MG/2 ML VIAL IV PUSH ×2 (11:27→23:03)
[2020-03-19] MEDS: NICOTINE (*PBKC) 21 MG PATCH 1 PATCH TRANSDERM (11:28)
--- NOTE | 2020-03-19 11:45 | WPDINTPN ---
Progress Note: A&P Assessment and Plan (1) Acute encephalopathy: Code(s): G93.40 - Encephalopathy, unspecified Status: Acute Assessment and Plan: patient with acute encephalopathy of unknown etiology. Could be related to infection, metabolic derangement, stroke - CT scan of the brain was negative for acute intracranial abnormalities - lumbar puncture on 03/18/2020 showed elevated glucose and protein. No signs of infection on the LP. - sodium level improving - ammonia levels are well within normal limits ( ammonia level is <9) - SARS-CoV-2 PCR was negative - appreciate neurology and infectious disease evaluation recommendation - according the mother patient is sexually active, has a girlfriend sometimes has sex with men, given his temporal wasting along with significant weight loss will obtain HIV status (2) Nausea and vomiting: Qualifiers: Vomiting type: unspecified Vomiting Intractability: non-intractable Qualified Code(s): R11.2 - Nausea with vomiting, unspecified Code(s): R11.2 - Nausea with vomiting, unspecified Status: Acute Assessment and Plan: patient had seen his primary care doctor approximately 4 days prior to admission for epigastric discomfort and anorexia and was impractical given thick diagnosis of gastritis and prescribed Carafate and omeprazole. - Nausea and vomiting have resolved since admission - patient tolerating clear liquid diet, will advance to full liquid diet - continue to treat empirically with acid suppression per GI (3) Hypokalemia: Code(s): E87.6 - Hypokalemia Status: Acute Assessment and Plan: likely secondary to diarrhea and vomiting - replace potassium (4) Elevated liver enzymes: Code(s): R74.8 - Abnormal levels of other serum enzymes Status: Acute Assessment and Plan: elevated liver enzymes be related to alcoholic liver disease or some agent that he may have been exposed to recently. - Right upper quadrant ultrasound 03/18/2020 showed normal liver with no surface nodularity, normal hepatic fluid the main portal vein. The gallbladder is normal with no abnormal wall thickening with pericholecystic fluid or stones. The normal common bile duct measures 4 mm, overall normal sonographic study of the gallbladder. The head and body of the pancreas are normal, the tail of the pancreas is obscured by bowel gas. - hepatitis panel is negative - LFTs trending down - GI following the patient (5) Alcohol abuse: Code(s): F10.10 - Alcohol abuse, uncomplicated Status: Acute Assessment and Plan: history of alcohol abuse, according the mother the last drink was in October 2019 (6) Acidosis, lactic: Code(s): E87.2 - Acidosis Status: Acute Assessment and Plan: patient with a lactic acidosis, adequately fluid-resuscitated could be related to hypovolemia from decreased p.o. intake and decreased and on good perfusion - received IV fluids, will give another bolus here in the ICU this morning - lactic acid has normalized (7) DVT prophylaxis: Code(s): Z29.9 - Encounter for prophylactic measures, unspecified Status: Acute Assessment and Plan: SCDs (8) Suspected COVID-19 virus infection: Code(s): Z20.828 - Contact with and (suspected) exposure to other viral communicable diseases Status: Acute Assessment and Plan: SARS-CoV-2 PCR negative - will discontinue droplet, airborne, contact isolation/precautions (9) Alcohol withdrawal: Code(s): F10.239 - Alcohol dependence with withdrawal, unspecified Status: Acute Assessment and Plan: according the patient's mother she found 30 small bottles of fireball ( cinnamon whiskey) in his apartment room. - Alcohol levels were negative on admission - will monitor for alcohol withdrawal - started patient on thiamine, folic acid and multivitamin - currently on Precedex infusion Addit
--- NOTE | 2020-03-19 13:03 | WPDINFPN2 ---
Progress Note: A&P Assessment and Plan (1) Acute encephalopathy: Code(s): G93.40 - Encephalopathy, unspecified Status: Acute Assessment and Plan: encephaloptathy. no infection REC Eval. underway, no empiric anti-infectives Subjective Date/time seen: 03/19/20 13:03 Objective Data Vital Signs Vital Signs: Vital Signs - 24 hr 03/18/20 13:10 03/18/20 14:00 03/18/20 16:00 Temperature 36.4 C Pulse Rate 99 83 89 Respiratory Rate 18 19 18 Blood Pressure 135/94 H 141/105 H 133/104 H Pulse Oximetry 98 99 100 03/18/20 16:18 03/18/20 18:00 03/18/20 20:00 Temperature 36.9 C Pulse Rate 78 78 73 Respiratory Rate 22 H 23 H Blood Pressure 132/98 H 164/77 H Pulse Oximetry 99 93 03/18/20 20:12 03/18/20 22:00 03/18/20 22:14 Temperature 37.1 C Pulse Rate 99 108 H 100 Respiratory Rate 20 26 H 26 H Blood Pressure 140/90 Pulse Oximetry 100 03/18/20 22:32 03/19/20 00:00 03/19/20 02:00 Temperature 36.8 C Pulse Rate 100 73 82 Respiratory Rate 26 H 16 22 H Blood Pressure 140/100 H 156/108 H Pulse Oximetry 93 98 03/19/20 04:00 03/19/20 06:00 03/19/20 07:44 Temperature 36.9 C 36.8 C Pulse Rate 40 L 90 60 Respiratory Rate 12 20 19 Blood Pressure 147/111 H 141/68 H 155/125 H Pulse Oximetry 98 98 100 03/19/20 10:00 03/19/20 11:21 03/19/20 12:00 Temperature 36.9 C Pulse Rate 71 98 100 Respiratory Rate 19 16 Blood Pressure 127/96 H 128/95 H Pulse Oximetry 100 100 Intake/Output Intake/Output: Intake & Output 03/16/20 03/17/20 03/18/20 03/19/20 23:59 23:59 23:59 23:59 Intake Total 1000 3940 700 Output Total 4350 900 Balance 1000 -410 -200 Meds/Results Medications: Active Medications Generic Name Dose Route Start Last Admin Trade Name Freq PRN Reason Stop Dose Admin Famotidine 20 mg 03/18/20 11:55 03/19/20 11:27 Pepcid Iv IV PUSH 20 mg Q12HR CARLOS Administration Folic Acid 1 mg 03/20/20 09:00 Folic Acid Inj IV PUSH QAM CARLOS Dexmedetomidine HCl 400 mcg in 100 mls @ 18.638 mls/hr 03/18/20 03:20 03/19/20 11:21 Precedex 400 Mcg/100 Ml IV CONT 1.5 mcg/kg/hr .Q5H22M CARLOS 18.6 mls/hr Administration Protocol 1.5 MCG/KG/HR Sodium Chloride 1,000 mls @ 120 mls/hr 03/18/20 12:05 03/19/20 05:46 Normal Saline Iv IV CONT 03/22/20 12:06 120 mls/hr .Q8H20M CARLOS Infusion Multivitamins Therapeutic 1 tablet 03/19/20 11:50 Multivitamins Therapeutic(*Bkc PO QAM CARLOS Nicotine 1 patch 03/18/20 09:00 03/19/20 11:28 Nicoderm Cq 21 Mg TRANSDERM 1 patch QAM CARLOS Administration Ondansetron HCl 4 mg 03/17/20 22:57 Zofran Inj IV PUSH Q4H PRN Nausea Thiamine HCl 100 mg 03/20/20 09:00 Thiamine Hcl Inj IV PUSH QAM CARLOS Radiology Results: ITS Impressions Head CT 03/17/20 21:19 IMPRESSION: 1. Normal head CT examination. Chest X-Ray 03/17/20 23:57 IMPRESSION: Unremarkable chest x-ray exam. Upper Quadrant Ultrasound 03/18/20 09:12 IMPRESSION: 1. Normal sonographic study of the gallbladder. Lumbar Puncture Fluoroscopy 03/18/20 13:55 IMPRESSION: 1. Successful fluoro-guided lumbar puncture with opening pressure of 11 cm water and with collection of 13 mL clear colorless fluid. Labs Labs: Laboratory Results - last 24 hr 03/18/20 03/18/20 03/18/20 12:42 12:43 14:30 WBC RBC Hgb Hct MCV MCH MCHC RDW Plt Count MPV Immature Gran % (Auto) Neut % (Auto) Lymph % (Auto) [place] % (Auto) Eos % (Auto) Baso % (Auto) Lymph # (Auto) [place] # (Auto) Eos # (Auto) Baso # (Auto) Abs Immat Gran (auto) Absolute Neuts (auto) Absolute Nucleated RBC Nucleated RBC % Sodium Potassium Chloride Carbon Dioxide Anion Gap BUN Creatinine Estim Creat Clear Calc Estimated GFR Glucose Lactic Acid Calcium Phosphorus Magnesiu
[2020-03-19] MEDS: POTASSIUM CHLORIDE 20 MEQ TABLET 40 MEQ PO (13:42)
[2020-03-19] MEDS: MULTIVITAMINS THERAPEUTIC TAB (*BKC) 1 TABLET PO (13:43)
[2020-03-19] MEDS: THIAMINE HCL 200 MG/2 ML VIAL 100 MG IV PUSH (13:44)
[2020-03-19] MEDS: SODIUM CHLORIDE 0.9% IV 1,000 ML 120 ML IV CONT ×2 (13:45→23:04)
[2020-03-19] MEDS: FOLIC ACID 1 MG/0.2 ML INJ IV PUSH (14:53)
--- NOTE | 2020-03-19 15:01 | CONS_ITS ---
DATE OF CONSULTATION: 03/19/2020 REASON FOR CONSULTATION: Altered mental status. HISTORY OF PRESENT ILLNESS: The patient is a 29-year-old male examined in the room with his mother present. She reports he was healthy as a child and adolescent, who received all his recommended vaccinations. History of marijuana use much heavier in the past. He was admitted to the hospital on March 17 with confusion and disorientation, also has had a right temporal headache. He received no antibiotics while here. Consultation requested. He denies any fever, chills, sweats, recent antibiotic use for any purpose, neck pain, dyspnea. He did see his primary physician in mid December for nausea and vomiting, was believed to have allergic condition, was given antihistamines and nasal steroid apparently. However, he has continued to have intermittent nausea and has lost some 20 pounds of weight in the last 3 months. His appetite has been diminished. Here, he has had lumbar puncture performed yesterday. ALLERGIES: NONE KNOWN. HABITS: He smokes tobacco as well. No illicit drug use. CURRENT MEDICATIONS: No immunosuppressants. PAST MEDICAL HISTORY: Carries diagnosis in the past of ADHD, wisdom teeth extraction otherwise. REVIEW OF SYSTEMS: Constitutional, allergic, immunologic, neurologic, GI, respiratory otherwise negative. FAMILY HISTORY: Not pertinent to his present illness. SOCIAL HISTORY: He is single. 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 Butterfield. PHYSICAL EXAMINATION: GENERAL: This is a thin male with temporal muscle wasting. No respiratory distress. VITAL SIGNS: Afebrile since arrival, 128/95, 116, 100% room air saturation. SKIN: No rashes, warm and dry. No ulcers or breaks in the skin. No needle tracks. NODES: No cervical adenopathy. EENT: Pupils equal, round, and reactive to light. The conjunctivae are normal. He has no temporal tenderness. Oropharynx, oral mucosa normal. Teeth in fair repair. NECK: No meningismus, mass or thyromegaly. LUNGS: Clear to auscultation. CARDIAC: Tachycardic, regular. No murmur, gallop, or rub. Has a physiologic split S2. ABDOMEN: Scaphoid, nontender. No mass. No organomegaly. Normal bowel sounds. EXTREMITIES: No clubbing, cyanosis, edema. Well perfused. NEUROLOGIC: He is awake and responds to questions appropriately. Moves all extremities well. No tremor. Normal muscle tone. LABORATORY DATA: From the spinal fluid yesterday, rare white cells, no organisms seen. Cultures no growth after 1 day's incubation. His chest x-ray was normal. Right upper quadrant ultrasound was normal. His white blood cell count 13.5 on admission, now 7.9, hemoglobin 13.0, platelets are 263. His differential shows minimal monocytosis. Blood gas 7.52, 31, 91, 25, 98% on room air. He has mild hyponatremia. Otherwise chemistry panel notable for bilirubin 1.9, elevated transaminases, which are improving, elevated alkaline phosphatase. Also lower albumin 3.2. His urinalysis, no evidence of infection, spinal fluid, 3 red cells, 3 white cells, 71 glucose, protein 113. COVID assay was nonreactive. Hepatitis panel nonreactive and testing the serum for Lyme and West Nile is pending. ASSESSMENT: 1. Acute encephalopathy appears to be noninfectious despite his mild leukocytosis. He does have elevated protein in the spinal fluid, otherwise normal findings on spinal analysis. 2. Marijuana use. 3. Past ADHD. RECOMMENDATIONS: 1. No anti-infectives. 2. Follow up on above microbiology testing. 3. Further evaluation process for his weight loss as well as other illnesses that might be explanatory for his present illness. Thank you very much for asking me to see him.
--- NOTE | 2020-03-19 16:28 | WPDNEUROPN ---
Progress Note: A&P Assessment and Plan (1) DVT prophylaxis: Code(s): Z29.9 - Encounter for prophylactic measures, unspecified Status: Acute (2) Dehydration: Code(s): E86.0 - Dehydration Status: Acute (3) Acute encephalopathy: Code(s): G93.40 - Encephalopathy, unspecified Status: Acute (4) Gastroenteritis: Code(s): K52.9 - Noninfective gastroenteritis and colitis, unspecified Status: Acute (5) Acidosis, lactic: Code(s): E87.2 - Acidosis Status: Acute (6) Altered mental status: Qualifiers: Altered mental status type: unspecified Qualified Code(s): R41.82 - Altered mental status, unspecified Code(s): R41.82 - Altered mental status, unspecified Status: Acute (7) Weight loss: Code(s): R63.4 - Abnormal weight loss Status: Acute (8) Smoking: Code(s): F17.200 - Nicotine dependence, unspecified, uncomplicated Status: Acute (9) Alcohol abuse: Code(s): F10.10 - Alcohol abuse, uncomplicated Status: Acute (10) Gastritis: Qualifiers: Gastritis type: unspecified gastritis Chronicity: acute Gastritis bleeding: without bleeding Qualified Code(s): K29.00 - Acute gastritis without bleeding Code(s): K29.70 - Gastritis, unspecified, without bleeding Status: Acute (11) Allergic rhinitis: Qualifiers: Allergic rhinitis trigger: other Allergic rhinitis seasonality: seasonal Qualified Code(s): J30.89 - Other allergic rhinitis Code(s): J30.9 - Allergic rhinitis, unspecified Status: Acute (12) Elevated liver enzymes: Code(s): R74.8 - Abnormal levels of other serum enzymes Status: Acute (13) Alcohol withdrawal: Code(s): F10.239 - Alcohol dependence with withdrawal, unspecified Status: Acute Additional Plan discussed with the mother and also with the patient about the effect of the alcohol on the central and the peripheral nervous system he is alert and of awake enough to understand and he realizes that he has to quit however I do not believe that he will be able to do it on his own he will need to have some help when he gets discharged for his alcoholism otherwise he will back to the present state all questions were answered to his mother mother as he went to sleep because of the effect of the sedation he has been receiving for his combativeness Review of Systems Review of Systems: All systems reviewed & are unremarkable except as noted in HPI and below Exam Const: General: comfortable and no acute distress HENMT: General nose exam: Normal nares present Mouth: Yes moist mucous membranes Eyes: General: appearance normal, both eyes and all related structures Neck: Neck: supple and no JVD Resp: Effort & Inspection: normal respiratory effort Auscultation: clear to auscultation bilaterally Cardio: Rate: regular rate Rhythm: regular rhythm GI: Auscultation: normal bowel sounds Skin: General skin exam: normal color and no rashes or lesions noted Neuro: Other: patient is awake alert oriented x3 however the memory for the most recent events is clearly not there does not have any focal motor deficit his neck is supple coronary is or Brudzinski signs are negative and sensory examination is fairly decent Extrem: General: normal to inspection Psych: Other: most likely resolving encephalopathy related to alcohol Objective Data Vital Signs Vital Signs: Vital Signs - 24 hr 03/18/20 18:00 03/18/20 20:00 03/18/20 20:12 Temperature 36.9 C Pulse Rate 78 73 99 Respiratory Rate 22 H 23 H 20 Blood Pressure 132/98 H 164/77 H Pulse Oximetry 99 93 03/18/20 22:00 03/18/20 22:14 03/18/20 22:32 Temperature 37.1 C Pulse Rate 108 H 100 100 Respiratory Rate 26 H 26 H 26 H Blood Pressure 140/90 Pulse Oximetry 100 03/19/20 00:00 03/19/20 02:00 03/19/20 04:00 Temperature 36.8 C 36.9 C Pulse Rate 73 82 40 L Respir
[2020-03-19] MEDS: NICOTINE (*PBKC) 4 MG GUM PO (21:15)
[2020-03-20] VITALS (10 sets, daily range): BP systolic 107–132; BP diastolic 48–96; PULSE 70–122; RESP 18–22; TEMP 36.1–37.3; O2SAT 99–100
[2020-03-20 05:35] LABS: Basophils Percent Auto 0.3 % (0.2-1.2); Eosinophils Absolute Auto 0.3 K/mm3 (0-0.3); Eosinophils Percent Auto 2.1 % (0-4.4); Hematocrit 34.7 % (42.0-52.0); Hemoglobin 12.5 g/dL (14.0-18.0); Immature Granulocyte Absolute 0.06 K/mm3 (0.00-0.031); Immature Granulocyte Percent A 0.5 % (0-0.5); Lymphocytes Absolute Auto 2.18 K/mm3 (0.9-3.2); Lymphocytes Percent Auto 18.2 % (18.3-44.2); Mean Corpuscular Hemoglobin 37.4 pg (26-34); Mean Corpuscular Volume 103.9 fl (80-100); Mean Platelet Volume 9.5 fl (7.4-10.4); Monocytes Percent Auto 8.2 % (2.6-8.5); Neutrophils Absolute Auto 8.5 K/mm3 (1.3-6.7); Neutrophils Percent Auto 70.7 % (45.5-73.1); Platelet Count Result 232 k/mm3 (150-375); Red Blood Count 3.34 M/mm3 (4.6-6.20); Red Cell Distribution Width 15.2 % (11.5-14.5)
[2020-03-20 06:05] LABS: Alanine Aminotransferase 53 U/L (4-50); Albumin Level 2.7 g/dL (3.5-5.1); Alkaline Phosphatase 131 U/L (38-126); Anion Gap 8.2 mmol/L (7-16); Aspartate Amino Transferase 65 U/L (17-59); Bilirubin,Total 1.1 mg/dL (0.2-1.3); Blood Urea Nitrogen 5 mg/dL (9-20); Calcium 7.9 mg/dL (8.4-10.2); Carbon Dioxide 27 mmol/L (22-30); Chloride 101 mmol/L (98-107); Estimated CRCL calculation 127 ml/min; Estimated Glomerular Filt Rate > 60; Glucose 81 mg/dL (75-110); Magnesium 1.9 mg/dL (1.6-2.3); Phosphorus 2.5 mg/dL (2.5-4.5); Potassium 4.2 mmol/L (3.4-5.0); Sodium 132 mmol/L (137-145)
[2020-03-20 07:24] LABS: Lipase 3616 U/L (23-300)
[2020-03-20] MEDS: FAMOTIDINE 20 MG/2 ML VIAL IV PUSH ×2 (09:07→21:44)
[2020-03-20] MEDS: SODIUM CHLORIDE 0.9% IV 1,000 ML 120 ML IV CONT (09:07)
[2020-03-20] MEDS: THIAMINE HCL 200 MG/2 ML VIAL 100 MG IV PUSH (09:08)
[2020-03-20] MEDS: MULTIVITAMINS THERAPEUTIC TAB (*BKC) 1 TABLET PO (09:08)
[2020-03-20] MEDS: NICOTINE (*PBKC) 4 MG GUM PO ×2 (09:11→14:32)
--- NOTE | 2020-03-20 09:39 | WPDINTPN ---
Progress Note: A&P Assessment and Plan (1) Acute encephalopathy: Code(s): G93.40 - Encephalopathy, unspecified Status: Acute Assessment and Plan: patient with acute encephalopathy of unknown etiology. Could be related to infection, metabolic derangement, stroke - CT scan of the brain was negative for acute intracranial abnormalities - lumbar puncture on 03/18/2020 showed elevated glucose and protein. No signs of infection on the LP. - sodium level improving unstable - ammonia levels are well within normal limits ( ammonia level is <9) - SARS-CoV-2 PCR was negative - appreciate neurology and infectious disease evaluation recommendation - according the mother patient is sexually active, has a girlfriend sometimes has sex with men, given his temporal wasting along with significant weight loss, HIV PCR has been obtained and pending (2) Nausea and vomiting: Qualifiers: Vomiting type: unspecified Vomiting Intractability: non-intractable Qualified Code(s): R11.2 - Nausea with vomiting, unspecified Code(s): R11.2 - Nausea with vomiting, unspecified Status: Acute Assessment and Plan: RESOLVED: patient had seen his primary care doctor approximately 4 days prior to admission for epigastric discomfort and anorexia and was impractical given thick diagnosis of gastritis and prescribed Carafate and omeprazole. - Nausea and vomiting have resolved since admission - patient tolerating FULL LIQUID DIET, WILL ADVANCE TO REGULAR DIET - continue to treat empirically with acid suppression per GI (3) Hypokalemia: Code(s): E87.6 - Hypokalemia Status: Acute Assessment and Plan: likely secondary to diarrhea and vomiting - replace potassium (4) Elevated liver enzymes: Code(s): R74.8 - Abnormal levels of other serum enzymes Status: Acute Assessment and Plan: elevated liver enzymes be related to alcoholic liver disease or some agent that he may have been exposed to recently. - Right upper quadrant ultrasound 03/18/2020 showed normal liver with no surface nodularity, normal hepatic fluid the main portal vein. The gallbladder is normal with no abnormal wall thickening with pericholecystic fluid or stones. The normal common bile duct measures 4 mm, overall normal sonographic study of the gallbladder. The head and body of the pancreas are normal, the tail of the pancreas is obscured by bowel gas. - hepatitis panel is negative - LFTs trending down - GI following the patient (5) Alcohol abuse: Code(s): F10.10 - Alcohol abuse, uncomplicated Status: Acute Assessment and Plan: history of alcohol abuse, according the mother the last drink was in October 2019 (6) Acidosis, lactic: Code(s): E87.2 - Acidosis Status: Acute Assessment and Plan: RESOLVED. patient with a lactic acidosis, adequately fluid-resuscitated could be related to hypovolemia from decreased p.o. intake and decreased and on good perfusion - received IV fluids, will give another bolus here in the ICU this morning - lactic acid has normalized (7) DVT prophylaxis: Code(s): Z29.9 - Encounter for prophylactic measures, unspecified Status: Acute Assessment and Plan: SCDs (8) Suspected COVID-19 virus infection: Code(s): Z20.828 - Contact with and (suspected) exposure to other viral communicable diseases Status: Acute Assessment and Plan: SARS-CoV-2 PCR negative - will discontinue droplet, airborne, contact isolation/precautions (9) Alcohol withdrawal: Qualifiers: Complication of substance-induced condition: with delirium Qualified Code(s): F10.231 - Alcohol dependence with withdrawal delirium Code(s): F10.239 - Alcohol dependence with withdrawal, unspecified Status: Acute Assessment and Plan: according the patient's mother she found 30 small bottles of fireball ( cinnamon whiskey) in his
--- NOTE | 2020-03-20 10:29 | WPDGIPROGNO ---
Progress Note: A&P Additional Plan Patient becoming more alert. More oriented. Aware of his surroundings better today. He denies abdominal pain. Previous nausea vomiting has resolved. He states he did have nausea vomiting for a month prior to admission. He has lost some weight. Continues to deny any known exposure to toxic agents. Physical exam reveals patient be alert. He is anicteric. Lungs are clear. Heart without murmur. Abdomen bowel sounds present soft nontender with no organomegaly. Labs reveal hemoglobin 12.5 stable. Total bilirubin 1.1, AST 65, ALT 53, alk-phos 131. These continue to improve. lipase elevated at 3 616. Impression 1. Mental status changes. This appears to be improving. Encephalopathy of uncertain nature. I suspect to was exposed to a toxic agent of some sort. 2. Elevated LFTs. These continue to resolve. Likely related to toxic exposure. The nature which remains unclear. 3. Nausea vomiting. Present for a month prior to admission. Associated with weight loss. Plan is to evaluate with EGD but this should be deferred until his mental status continues to improve. 4. Lipase elevation. Lipase was normal on admission but now quite elevated. ultrasound on admission was unremarkable. We will continue to monitor. This probably does not reflect pancreatitis. Subjective Date/time seen: 03/20/20 10:29 Objective Data Vital Signs Vital Signs: Vital Signs - 24 hr 03/19/20 11:21 03/19/20 12:00 03/19/20 14:00 Temperature 98.4 F Pulse Rate 98 77 82 Respiratory Rate 16 24 H Blood Pressure 128/95 H 129/93 H Pulse Oximetry 100 100 03/19/20 14:05 03/19/20 16:00 03/19/20 20:00 Temperature 98.1 F 98.1 F 98.7 F Pulse Rate 84 85 Respiratory Rate 22 H 20 Blood Pressure 114/87 91/55 L Pulse Oximetry 100 100 03/19/20 22:00 03/20/20 00:00 03/20/20 02:00 Temperature 99.1 F Pulse Rate 88 83 70 Respiratory Rate 20 20 20 Blood Pressure 99/56 L 109/79 107/72 Pulse Oximetry 100 99 99 03/20/20 04:00 03/20/20 08:00 03/20/20 10:00 Temperature 98.7 F 98.4 F Pulse Rate 73 74 81 Respiratory Rate 22 H 18 22 H Blood Pressure 119/83 126/96 H 114/48 L Pulse Oximetry 99 100 100 Intake/Output Intake/Output: Intake & Output 03/17/20 03/18/20 03/19/20 03/20/20 23:59 23:59 23:59 23:59 Intake Total 1000 3940 4380 2440 Output Total 4350 1800 1100 Balance 1000 -410 2580 1340 Meds/Results Medications: Active Medications Generic Name Dose Route Start Last Admin Trade Name Freq PRN Reason Stop Dose Admin Chlordiazepoxide HCl 25 mg 03/20/20 10:30 Librium Po PO Q6H CARLOS Famotidine 20 mg 03/18/20 11:55 03/20/20 09:07 Pepcid Iv IV PUSH 20 mg Q12HR CARLOS Administration Folic Acid 1 mg 03/20/20 09:00 Folic Acid Inj IV PUSH QAM CARLOS Dexmedetomidine HCl 400 mcg in 100 mls @ 6.213 mls/hr 03/18/20 03:20 03/20/20 10:03 Precedex 400 Mcg/100 Ml IV CONT 0.5 mcg/kg/hr .Q16H6M CARLOS 6.2 mls/hr Titration Protocol 0.5 MCG/KG/HR Multivitamins Therapeutic 1 tablet 03/19/20 11:50 03/20/20 09:08 Multivitamins Therapeutic(*Bkc PO 1 tablet QAM CARLOS Administration Nicotine Polacrilex 4 mg 03/19/20 20:22 03/20/20 09:11 Nicorette 4 Mg Gum PO 4 mg PRN PRN Administration Nicotine Cravings Ondansetron HCl 4 mg 03/17/20 22:57 Zofran Inj IV PUSH Q4H PRN Nausea Thiamine HCl 100 mg 03/20/20 09:00 03/20/20 09:08 Thiamine Hcl Inj IV PUSH 100 mg QAM CARLOS Administration Radiology Results: ITS Impressions Head CT 03/17/20 21:19 IMPRESSION: 1. Normal head CT examination. Chest X-Ray 03/17/20 23:57 IMPRESSION: Unremarkable chest x-ray exam. Upper Quadrant Ultrasound 03/18/20 09:12 IMPRESSION: 1. Normal sonographic study of the gallbladder. Lumbar Puncture Fluoroscopy 03/18/20 13:55 IMPRESSION: 1. Successful fluoro-guided lumbar puncture wit
--- NOTE | 2020-03-20 11:18 | PCFNICU ---
ICU Rounding Note: Pt current nutrition is Regular. Nutrition recommendation:Agree Last recorded weight is 48.5kg. Bowel Motility:+BM reported 03/20 Labs Reviewed:Cr 0.5,BUN 5,Na 132 Meds Noted:Precedex, MVI, Thiamine, Zofran Additional Notes: Patient tolerated full liquids advancing to regular diet. Diet supplements of Ensure Enlive remain on trays providing an additional 350 kcals and 20 gms protein. HIV testing pending. Following daily in ICU rounds. Assessing/Reassessing every 5 days.
--- NOTE | 2020-03-20 12:12 | WPDNEUROPN ---
Progress Note: A&P Assessment and Plan (1) DVT prophylaxis: Code(s): Z29.9 - Encounter for prophylactic measures, unspecified Status: Acute (2) Dehydration: Code(s): E86.0 - Dehydration Status: Acute (3) Nausea and vomiting: Qualifiers: Vomiting type: unspecified Vomiting Intractability: non-intractable Qualified Code(s): R11.2 - Nausea with vomiting, unspecified Code(s): R11.2 - Nausea with vomiting, unspecified Status: Acute (4) Acute encephalopathy: Code(s): G93.40 - Encephalopathy, unspecified Status: Acute (5) Hypokalemia: Code(s): E87.6 - Hypokalemia Status: Acute (6) Gastroenteritis: Code(s): K52.9 - Noninfective gastroenteritis and colitis, unspecified Status: Acute (7) Acidosis, lactic: Code(s): E87.2 - Acidosis Status: Acute (8) Altered mental status: Qualifiers: Altered mental status type: unspecified Qualified Code(s): R41.82 - Altered mental status, unspecified Code(s): R41.82 - Altered mental status, unspecified Status: Acute (9) Weight loss: Code(s): R63.4 - Abnormal weight loss Status: Acute (10) Smoking: Code(s): F17.200 - Nicotine dependence, unspecified, uncomplicated Status: Acute (11) Alcohol abuse: Code(s): F10.10 - Alcohol abuse, uncomplicated Status: Acute (12) Gastritis: Qualifiers: Gastritis type: unspecified gastritis Chronicity: acute Gastritis bleeding: without bleeding Qualified Code(s): K29.00 - Acute gastritis without bleeding Code(s): K29.70 - Gastritis, unspecified, without bleeding Status: Acute (13) Allergic rhinitis: Qualifiers: Allergic rhinitis trigger: other Allergic rhinitis seasonality: seasonal Qualified Code(s): J30.89 - Other allergic rhinitis Code(s): J30.9 - Allergic rhinitis, unspecified Status: Acute (14) Elevated liver enzymes: Code(s): R74.8 - Abnormal levels of other serum enzymes Status: Acute (15) Alcohol withdrawal: Qualifiers: Complication of substance-induced condition: with delirium Qualified Code(s): F10.231 - Alcohol dependence with withdrawal delirium Code(s): F10.239 - Alcohol dependence with withdrawal, unspecified Status: Acute Additional Plan most of the issues involved with his hospitalization have resolved and they were directly related to the alcohol he has been using for quite some time with neurological examination is back to normal I discussed at length the implications of the alcohol both with him and his mother and they understood it well The patient is going to be moved to the acute medical floor and I will be happy to follow him there Review of Systems Review of Systems: All systems reviewed & are unremarkable except as noted in HPI and below Exam Const: General: comfortable and no acute distress HENMT: General nose exam: Normal nares present Mouth: Yes moist mucous membranes Eyes: General: appearance normal, both eyes and all related structures Neck: Neck: supple and no JVD Resp: Effort & Inspection: normal respiratory effort Auscultation: clear to auscultation bilaterally Cardio: Rate: regular rate Rhythm: regular rhythm GI: Auscultation: normal bowel sounds Skin: General skin exam: normal color and no rashes or lesions noted Neuro: Other: patient's mentally is perfectly back to his normal with no lateralizing focal motor deficit Extrem: General: normal to inspection Psych: Mental Status: mental status grossly normal Objective Data Vital Signs Vital Signs: Vital Signs - 24 hr 03/20/20 14:00 03/20/20 20:00 03/20/20 21:47 Temperature 36.1 C L Pulse Rate 89 122 H Pulse Rate [Bilateral Pedal (Dorsalis Pedis)] 80 Pulse Rate [Bilateral Radial] Respiratory Rate 20 18 Blood Pressure 132/80 Pulse Oximetry 100 03/20/20 23:50 03/21/20
[2020-03-20] MEDS: chlordiazePOXIDE 25 MG CAPSULE PO ×3 (12:52→22:01)
[2020-03-20 15:41] LABS: Lyme Disease Ab (IgM), Blot Negative (Negative); Lyme Disease Ab(IgG), Blot Negative (Negative)
--- NOTE | 2020-03-20 18:34 | PC.NURSE ---
PATIENT TRANSFERRED TO ROOM 256 PER WHEELCHAIR. REPORT GIVEN TO MARTHA LEE. ALL QUESTIONS ANSWERED.
[2020-03-20] MEDS: NICOTINE (*PBKC) 21 MG PATCH 1 PATCH TRANSDERM (18:56)
[2020-03-21 04:00] VITALS: PULSE 96
[2020-03-21] MEDS: chlordiazePOXIDE 25 MG CAPSULE PO (05:19)
[2020-03-21 05:30] LABS: Hematocrit 32.5 % (42.0-52.0); Hemoglobin 11.8 g/dL (14.0-18.0); Mean Corpuscular HGB Conc 36.3 g/dl (32-36); Mean Corpuscular Volume 101.9 fl (80-100); Mean Platelet Volume 9.3 fl (7.4-10.4); Platelet Count Result 249 k/mm3 (150-375); Red Blood Count 3.19 M/mm3 (4.6-6.20); Red Cell Distribution Width 15.1 % (11.5-14.5); White Blood Count 13.4 K/mm3 (4.5-10.0)
[2020-03-21 05:48] VITALS: BP 134/92; PULSE 97; RESP 18; TEMP 35.8; O2SAT 100
[2020-03-21 05:48] LABS: Alanine Aminotransferase 41 U/L (4-50); Alkaline Phosphatase 143 U/L (38-126); Anion Gap 9.1 mmol/L (7-16); Aspartate Amino Transferase 47 U/L (17-59); Bilirubin,Total 0.5 mg/dL (0.2-1.3); Blood Urea Nitrogen 2 mg/dL (9-20); Carbon Dioxide 27 mmol/L (22-30); Chloride 99 mmol/L (98-107); Estimated CRCL calculation 154 ml/min; Estimated Glomerular Filt Rate > 60; Glucose 91 mg/dL (75-110); Potassium 3.1 mmol/L (3.4-5.0); Sodium 132 mmol/L (137-145)
[2020-03-21] MEDS: MULTIVITAMINS THERAPEUTIC TAB (*BKC) 1 TABLET PO (08:16)
[2020-03-21] MEDS: POTASSIUM CHLORIDE 20 MEQ TABLET 40 MEQ PO (08:16)
[2020-03-21] MEDS: FAMOTIDINE 20 MG/2 ML VIAL IV PUSH (08:18)
[2020-03-21] MEDS: FOLIC ACID 1 MG/0.2 ML INJ IV PUSH (08:18)
[2020-03-21] MEDS: NICOTINE (*PBKC) 21 MG PATCH 1 PATCH TRANSDERM (08:19)
[2020-03-21] MEDS: THIAMINE HCL 200 MG/2 ML VIAL 100 MG IV PUSH (08:19)
[2020-03-21 08:29] LABS: Lipase 1975 U/L (23-300)
--- NOTE | 2020-03-21 09:57 | WPDGIPROGNO ---
Progress Note: A&P Additional Plan Patient alert pain free this morning. No nausea or vomiting described. He wishes to go home. Physical exam reveals patient to be alert and oriented at this time. He is afebrile and anicteric. Lungs are clear to auscultation and percussion. Heart is without murmur or extra sounds. Abdominal exam bowel sounds present soft nontender with no organomegaly. Labs reveal lipase 1975, LFTs have otherwise normalized. Impression 1. Mental status changes. Etiology unclear but toxic exposure is felt likely. 2. Elevated LFTs have resolved. Likely related to toxic sick exposure of uncertain nature. Patient should avoid alcohol and drug use. 3. Elevated lipase. Suspicious for pancreatitis. No clinical evidence of this however he denies abdominal pain. No x-ray findings. I would follow up lipase level after discharge. 4. Weight loss. Associated with his nausea for a month prior to admission. Plan is to arrange elective outpatient EGD after discharge. HIV status pending. Plan for discharge. Low-fat diet. Follow-up EGD as an outpatient. Subjective Date/time seen: 03/21/20 09:57 Objective Data Vital Signs Vital Signs: Vital Signs - 24 hr 03/20/20 10:00 03/20/20 12:00 03/20/20 14:00 Temperature 97.9 F Pulse Rate 81 80 89 Pulse Rate [Bilateral Pedal (Dorsalis Pedis)] Pulse Rate [Bilateral Radial] Respiratory Rate 22 H 19 20 Blood Pressure 114/48 L 116/90 Pulse Oximetry 100 100 03/20/20 20:00 03/20/20 21:47 03/20/20 23:50 Temperature 97 F L Pulse Rate 122 H Pulse Rate [Bilateral Pedal (Dorsalis Pedis)] 80 Pulse Rate [Bilateral Radial] 104 H Respiratory Rate 18 Blood Pressure 132/80 Pulse Oximetry 100 03/21/20 04:00 03/21/20 05:48 Temperature 96.4 F L Pulse Rate 97 Pulse Rate [Bilateral Pedal (Dorsalis Pedis)] Pulse Rate [Bilateral Radial] 96 Respiratory Rate 18 Blood Pressure 134/92 H Pulse Oximetry 100 Intake/Output Intake/Output: Intake & Output 03/18/20 03/19/20 03/20/20 03/21/20 23:59 23:59 23:59 23:59 Intake Total 3940 4380 3710 1790 Output Total 4350 1800 1100 Balance -410 2580 2610 1790 Meds/Results Medications: Active Medications Generic Name Dose Route Start Last Admin Trade Name Freq PRN Reason Stop Dose Admin Acetaminophen 650 mg 03/20/20 18:37 Tylenol Tablet PO Q6H PRN Mild Pain (1-3) or Fever Chlordiazepoxide HCl 25 mg 03/20/20 11:00 03/21/20 05:19 Librium Po PO 25 mg Q6H CARLOS Administration Famotidine 20 mg 03/18/20 11:55 03/21/20 08:18 Pepcid Iv IV PUSH 20 mg Q12HR CARLOS Administration Folic Acid 1 mg 03/20/20 09:00 03/21/20 08:18 Folic Acid Inj IV PUSH 1 mg QAM CARLOS Administration Lorazepam 0.5 mg 03/20/20 18:59 Ativan Inj IV PUSH Q6H PRN Anxiety Multivitamins Therapeutic 1 tablet 03/19/20 11:50 03/21/20 08:16 Multivitamins Therapeutic(*Bkc PO 1 tablet QAM CARLOS Administration Nicotine 1 patch 03/20/20 18:35 03/21/20 08:19 Nicoderm Cq 21 Mg TRANSDERM 1 patch QAM CARLOS Administration Ondansetron HCl 4 mg 03/17/20 22:57 Zofran Inj IV PUSH Q4H PRN Nausea Thiamine HCl 100 mg 03/20/20 09:00 03/21/20 08:19 Thiamine Hcl Inj IV PUSH 100 mg QAM CARLOS Administration Radiology Results: ITS Impressions Head CT 03/17/20 21:19 IMPRESSION: 1. Normal head CT examination. Chest X-Ray 03/17/20 23:57 IMPRESSION: Unremarkable chest x-ray exam. Upper Quadrant Ultrasound 03/18/20 09:12 IMPRESSION: 1. Normal sonographic study of the gallbladder. Lumbar Puncture Fluoroscopy 03/18/20 13:55 IMPRESSION: 1. Successful fluoro-guided lumbar puncture with opening pressure of 11 cm water and with collection of 13 mL clear colorless fluid. Labs Labs: Laboratory Results - last 24 hr 03/18/20 03/21/20 03/21/20 11:08 05:05 05:05 WBC 13.4 H
--- NOTE | 2020-03-21 13:41 | PM.DS ---
DS: Admitting Diagnosis Admitting Diagnosis Admitting Diagnosis: Encephalopathy, unspecified DS: Discharge Diagnosis Discharge Diagnosis (1) Acute encephalopathy: Code(s): G93.40 - Encephalopathy, unspecified Status: Acute Assessment and Plan: May be secondary to acute withdrawal from alcohol vs. another drug?? vs. metabolic encephalopathy? - Transfer to ICU as the patient has become agitated and is severely confused. We will plan to administer precedex IV overnight. Air Table Operator, Dr. Raygoza has been consulted. (2) Acidosis, lactic: Code(s): E87.2 - Acidosis Status: Acute Assessment and Plan: Likely secondary to diarrhea. Continue IV hydration. Monitor acid-base status. Check reflex lactic acid. Check ABG. (3) Hypokalemia: Code(s): E87.6 - Hypokalemia Status: Acute Assessment and Plan: Patient was administered a K rider in the ER. telemetry. check repeat BMP and Mg now. We will consider further potassium supplementation as needed. (4) Nausea and vomiting: Qualifiers: Vomiting type: unspecified Vomiting Intractability: non-intractable Qualified Code(s): R11.2 - Nausea with vomiting, unspecified Code(s): R11.2 - Nausea with vomiting, unspecified Status: Acute Assessment and Plan: Antimetics as needed. (5) Dehydration: Code(s): E86.0 - Dehydration Status: Acute Assessment and Plan: Continue IV hydration. (6) Suspected COVID-19 virus infection: Code(s): Z20.828 - Contact with and (suspected) exposure to other viral communicable diseases Status: Acute Assessment and Plan: droplet isolation. supportive care. DS: Summary Hospital Course Reason for hospitalization: Narrative: This is a 29 year old male who presented to the hospital with a complaint of altered mental status. Apparently the patient was talking to his mother over the phone when she noticed that he wasn't making sense. The patient himself is quite confused and continually will ask questions like Where am I? after he is told 1 minute ago that he is in the hospital. The patient's mother had reported to ER provider that the patient recently has been sick with a stomach ulcer and has had diarrhea and vomiting. Apparently he was working up until 4 days ago. His last reported alcoholic drink was in During my encounter with the patient he continually asks if he can leave and is attempting to pull out his IV and leave. Routine labs obtained in the ER demonstrated mild leukocytosis, dehdyration, metabolic acidosis and hypokalemia. The patient was treated with IV fluids and a K rider. The patient currently denies any pain, fevers, chills, headache, blurry vision, shortness of breath, cough, sore throat, abdominal pain, dysuria, hematuria, or rectal bleeding. No other complaints. Hospital Course: May be secondary to acute withdrawal from alcohol vs. another drug?? vs. metabolic encephalopathy? - Transfer to ICU as the patient has become agitated and is severely confused. We will plan to administer precedex IV overnight. Air Table Operator, Dr. Raygoza has been consulted. patient remained clinically stayed seen by neurologist was seen by ID, will going discharge the patient with his mother Status at Discharge Functional status at discharge: independent ambulation Overall status at discharge: patient is back to baseline Time Spent with Patient Time attestation: Total time spent providing and/or coordinating discharge services: Patient was seen and examined at the time of the discharge Condition at discharge is stable Code status: Full code. Time spent preparing discharge summary, discharge medications, discussing discharge planning with piano case and bench assembler and patient is 35 minutes. Time spent: Greater than 30 minutes Exam Const: General: comfortable and no acute distress HENMT: General nose exam: Normal nares present Eyes: General:
[2020-03-21 14:00] VITALS: BP 131/94; PULSE 96; RESP 18; TEMP 36.8; O2SAT 100
[2020-03-21 15:33] LABS: VDRL Quantitative CSF Nonreactive (Nonreactive)
[2020-03-21 20:17] LABS: Cryptococcus Antigen Not Detected (Not Detected); Cryptococcus Specimen Source CSF
[2020-03-21 21:11] LABS: West Nile Virus, IgM <0.90 index (<0.90)
[2020-03-22 14:36] LABS: Herpes Simplex Type 1 DNA PCR Not Detected (Not Detected); Herpes Simplex Type 2 DNA PCR Not Detected (Not Detected)
[2020-03-22 19:00] LABS: Epstein Barr Virus DNA PCR Not Detected (Not Detected); Source Epstein Barr Virus CSF
== END 2020-03-21 14:42 | disposition home or self-care (01) | DRG 896 ==
LOC: ANHED 23:02 → ANH3MEDSUR 23:18 → ANHICU 03-18 03:45 → ANH2MED 03-21 13:41 → ANHICU 03-25 12:42
PROVIDERS: Internal Medicine; Admitting Provider Family Medicine; Emergency Provider Emergency Medicine; PCP Family Medicine; Visit Provider Family Medicine
DX: F10.231 Alcohol dependence with withdrawal delirium (principal); G92 Toxic encephalopathy; G93.41 Metabolic encephalopathy; E87.2 Acidosis; E87.1 Hypo-osmolality and hyponatremia; F19.939 Other psychoactive substance use, unspecified with withdrawal, unspecified; F90.9 Attention-deficit hyperactivity disorder, unspecified type; E86.0 Dehydration; R11.2 Nausea with vomiting, unspecified; K52.9 Noninfective gastroenteritis and colitis, unspecified; D72.829 Elevated white blood cell count, unspecified; Z20.828 Contact with and (suspected) exposure to other viral communicable diseases; E87.6 Hypokalemia; R63.4 Abnormal weight loss; F17.210 Nicotine dependence, cigarettes, uncomplicated; K29.00 Acute gastritis without bleeding; E16.2 Hypoglycemia, unspecified; J30.89 Other allergic rhinitis; Y90.0 Blood alcohol level of less than 20 mg/100 ml; R74.8 Abnormal levels of other serum enzymes
CPT/HCPCS: 36415; 36600; 62328; 70450; 71045; 76705; 80048; 80053; 80074; 80307; 81001; 82140; 82607; 82746; 82805; 82945; 83605; 83690; 83735; 84100; 84157; 84443; 85025; 85027; 85610; 85730; 86140; 86403; 86592; 86617; 86788; 87015; 87070; 87102; 87116; 87205; 87206; 87255; 87529; 87536; 87635; 87798; 89051; 93005; 96361; 96365; 96366; 96367; 96374; 96375; 99285; A9270; C9803; G0378; J1200; J1630; J2060; J2405; J2765; J3411; J3475; J3480; J7030; J7120; U0003

== ENCOUNTER 2020-05-22 20:47 | Emergency (ER) | payer BC, MEDICAID, SELFPAY ==
[2020-05-22 20:52] VITALS: BP 147/103; PULSE 125; RESP 20; TEMP 36.7; O2SAT 99
[2020-05-22 21:19] LABS: Basophils Absolute Auto 0.1 K/mm3 (0.0-0.1); Basophils Percent Auto 0.9 % (0.2-1.2); Eosinophils Percent Auto 0.1 % (0-4.4); Hematocrit 35.9 % (42.0-52.0); Hemoglobin 13.3 g/dL (14.0-18.0); Immature Granulocyte Absolute 0.05 K/mm3 (0.00-0.031); Immature Granulocyte Percent A 0.5 % (0-0.5); Lymphocytes Absolute Auto 2.39 K/mm3 (0.9-3.2); Lymphocytes Percent Auto 23.6 % (18.3-44.2); Mean Corpuscular Hemoglobin 34.7 pg (26-34); Mean Corpuscular Volume 93.7 fl (80-100); Mean Platelet Volume 9.6 fl (7.4-10.4); Monocytes Absolute Auto 1.2 K/mm3 (0.1-0.6); Monocytes Percent Auto 11.4 % (2.6-8.5); Neutrophils Absolute Auto 6.4 K/mm3 (1.3-6.7); Neutrophils Percent Auto 63.5 % (45.5-73.1); Platelet Count Result 246 k/mm3 (150-375); Red Blood Count 3.83 M/mm3 (4.6-6.20); White Blood Count 10.1 K/mm3 (4.5-10.0)
[2020-05-22 21:20] LABS: Alanine Aminotransferase 211 U/L (4-50); Albumin Level 3.5 g/dL (3.5-5.1); Alkaline Phosphatase 747 U/L (38-126); Anion Gap 14 mmol/L (8-16); Aspartate Amino Transferase 462 U/L (17-59); Bilirubin,Total 4.2 mg/dL (0.2-1.3); Calcium 8.5 mg/dL (8.4-10.2); Carbon Dioxide 30 mmol/L (22-30); Chloride 89 mmol/L (98-107); Estimated Glomerular Filt Rate > 60; Glucose 185 mg/dL (75-110); Potassium 3.3 mmol/L (3.4-5.0); Sodium 133 mmol/L (137-145)
[2020-05-22 21:46] LABS: Blood Urea Nitrogen < 2 mg/dL (9-20)
[2020-05-22 21:50] LABS: Ethanol 331 mg/dL (<10)
--- NOTE | 2020-05-22 23:02 | ED.ALCOHOL ---
HPI - Alcohol General Chief Complaint: Alcohol Stated Complaint: Unable to keep anything down Time Seen by Provider: 05/22/20 22:47 History of Present Illness HPI narrative: 29 yo male w/ h/o alcoholism presents to the ED for nausea, vomiting, alcohol dependence. He is a daily drinker. He has had issues with alcohol withdrawal when he has tried to abstain in the past. He is currently awaiting placement in a treatment program. Additionally he reports not tolerating PO. No abdominal pain. Related Data Allergies Allergy/AdvReac Type Severity Reaction Status Date / Time No Known Allergies Allergy Verified 04/02/20 11:28 Review of Systems Review of Systems: All systems reviewed & are unremarkable except as noted in HPI and below Cardiovascular: Cardiovascular: Denies chest pain Respiratory: Respiratory: Denies dyspnea Gastrointestinal: Gastrointestinal: Denies abdominal pain, Denies constipation, Denies diarrhea, Reports nausea and Reports vomiting Neurologic: Reports weakness PMFSH Past Medical History Medical History ADHD Alcohol abuse Altered mental status Weight loss Surgical History Surgical History History of circumcision History of wisdom tooth extraction Family History Family History Father Diabetes mellitus Social History Social History Smoking status: Current every day smoker Alcohol intake: current Substance use: current Substance use type: marijuana Spiritual care concerns: No Exam Const: General: no acute distress, alert and ill appearing chronically Nutritional Appearance: thin Orientation/consciousness: patient oriented x3 HENMT: Head: normal to inspection Resp: Effort & Inspection: normal respiratory effort Auscultation: clear to auscultation bilaterally Cardio: Rate: tachycardic Rhythm: regular rhythm GI: GI Palp: Yes Soft to palpation and No Tenderness to palpation present (GI) Skin: General skin exam: normal color Neuro: General: patient oriented x3, moves all extremities and CN's II-XI intact bilaterally Speech: normal speech Other: normal gait Extrem: General: normal to inspection Course Vital Signs Vital signs: Vital Signs Temperature 36.7 C 05/22/20 20:52 Pulse Rate 125 H 05/22/20 20:52 Respiratory Rate 20 05/22/20 20:52 Blood Pressure 147/103 H 05/22/20 20:52 Pulse Oximetry 99 05/22/20 20:52 Temperature 37.3 C 05/23/20 00:45 Pulse Rate 108 H 05/23/20 00:45 Respiratory Rate 16 05/23/20 00:45 Blood Pressure 129/99 H 05/23/20 00:45 Pulse Oximetry 99 05/23/20 00:45 MDM - Alcohol MDM Narrative Medical decision making narrative: Feeling better with fluids. tolerating PO. Elevated liver enzymes, bilirubin, and alk phos. We discussed the importance of abstaining from alcohol. I provided him with a small amount of librium to avoid any acute withdrawal symptoms. Medical Records Attestation: I reviewed the patient's medical records. Lab Data Attestation: I reviewed the patient's lab results. Result diagrams: 05/22/20 20:57 05/22/20 20:57 Labs: Lab Results 05/22/20 05/22/20 05/22/20 Range/Units 20:57 20:57 20:57 WBC 10.1 H (4.5-10.0) K/mm3 RBC 3.83 L (4.6-6.20) M/mm3 Hgb 13.3 L (14.0-18.0) g/dL Hct 35.9 L (42.0-52.0) % MCV 93.7 (80-100) fl MCH 34.7 H (26-34) pg MCHC 37.0 H (32-36) g/dl RDW 16.0 H (11.5-14.5) % Plt Count 246 (150-375) k/mm3 MPV 9.6 (7.4-10.4) fl Immature Gran % (Auto) 0.5 (0-0.5) % Neut % (Auto) 63.5 (45.5-73.1) % Lymph % (Auto) 23.6 (18.3-44.2) % [place] % (Auto) 11.4 H (2.6-8.5) % Eos % (Auto) 0.1 (0-4.4) % Baso % (Auto) 0.9 (0.2-1.2) % Lymph # (Auto) 2.39 (0.9-
[2020-05-22] MEDS: DEXTROSE 5%/0.45% SOD CHL 1,000 ML 1000 ML IV CONT (23:15)
[2020-05-22] MEDS: ONDANSETRON INJ 4 MG/2 ML VIAL IV PUSH (23:16)
[2020-05-22 23:55] LABS: Add Urine Microscopic? YES; Appearance Urine Clear (Clear); Bacteria Urine Trace /hpf; Bilirubin Urine 1+ (Negative); Blood Urine Negative (Negative); Color Urine Amber (Yellow); Glucose Urine UA Negative (Negative); Ketones Urine Negative (Negative); Leukocyte Esterase Ur Negative LEU/UL (Negative); Nitrate Urine Negative (Negative); Protein Urine Negative (Negative); RBC Urine 0-2 /hpf (0-2); Specific Grav Ur 1.023 (1.001-1.035); WBC Urine 0-3 /hpf
[2020-05-23] MEDS: PANTOPRAZOLE SODIUM IV 40 MG VIAL IV PUSH (00:06)
[2020-05-23 00:45] VITALS: BP 129/99; PULSE 108; RESP 16; TEMP 37.3; O2SAT 99
== END 2020-05-23 00:45 | disposition home or self-care (01) ==
PROVIDERS: Emergency Provider Emergency Medicine; PCP Family Medicine
DX: K29.20 Alcoholic gastritis without bleeding (principal); F10.20 Alcohol dependence, uncomplicated; R94.5 Abnormal results of liver function studies; F17.200 Nicotine dependence, unspecified, uncomplicated; Y90.8 Blood alcohol level of 240 mg/100 ml or more
CPT/HCPCS: 11720; 36415; 80053; 80307; 81001; 85025; 96361; 96374; 96375; 99284; C9113; J2405

== ENCOUNTER 2025-01-14 02:13 | Inpatient (IN) | payer BC, SELFPAY ==
[2025-01-14] VITALS (8 sets, daily range): BP systolic 117–150; BP diastolic 65–98; PULSE 52–93; RESP 16–20; TEMP 36.6–37.1; O2SAT 97–100; BMI 24.3
--- NOTE | ~2025-01-14 | US_ITS ---
US abdomen limited INDICATION: Pancreatitis PROCEDURE: Realtime right upper abdominal ultrasound. COMPARISON: No prior studies for comparison. FINDINGS: Pancreas appears somewhat heterogeneous, although not well visualized. No discrete mass anayeli ntified. Liver echotexture is normal without focal mass or intrahepatic biliary dilatation. There i s normal directional flow in the portal vein. The gallbladder is normal without stones, gallbladder wall thickening or pericholecystic fluid. Comm on bile duct measures 3 mm. No sonographic Min's sign. IMPRESSION: 1: Heterogeneous pancreas without discrete mass. Limited visualization. Refer to CT abdomen dated 01/14. Reviewed, dictated and finalized at location A. IMPRESSION: 1: Heterogeneous pancreas without discrete mass. Limited visualization. Refer t o CT abdomen dated 01/14/2025.
--- NOTE | ~2025-01-14 | CT_ITS ---
CT of the Abdomen and Pelvis: Indication: Pancreatitis Technique: 2.5 mm axial scans were obtained through the abdomen and pelvis following intravenous adm inistration of 100 cc of Omnipaque 350. Dose reduction technique was used on this scan by utilizing a utomated exposure control and iterative reconstruction technique. The dose-length product (DLP) was 3 04.01 mGy-cm. Findings: Scans through the lung bases are unremarkable. The liver, spleen, gallbladder, adrenals and kidneys are within normal limits. There is extensive per ipancreatic inflammatory change and fluid extending into the perisplenic region in the inferior retro peritoneum. No definite pancreatic necrosis or pseudocyst evident. No evidence of aortic aneurysm. N o lymphadenopathy. No bowel obstruction or bowel wall thickening. There is no evidence to suggest acute appendicitis. Images through the pelvis were performed. Urinary bladder unremarkable. No pelvic mass seen. No pelvi c ascites. Impression: Acute pancreatitis, as detailed above. No definite necrosis or pseudocyst identified. Reviewed, dictated and finalized at location . Impression: Acute pancreatitis, as detailed above. No definite necrosis or pseudocyst ident ified.
--- OUTSIDE RECORDS SUMMARY | 2025-01-14 02:16 | XMS_ITS | Patient Health Record ---
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 every day How many cigarettes a day do you smoke? -20 Problems Problem Type SNOMED Code ICD Code Onset Dates Problem Status W/U Status Risk Notes Problem 8538974 Thrombocytosis (D47.3) Active confirmed Problem 56292565 Depression, unspecified depression type (F32.9) 0 Active confirmed Problem 26597845 Cannabis use disorder, mild, abuse (F12.10) Active confirmed Problem 431891359 Leukocytosis, unspecified type (D72.829) Active confirmed Problem Chronic gastriti s without bleeding, unspecified gastritis type (K29.50) Active confirmed Problem 924804971 Alcohol use disorder, severe, dependence (F10.20) Active confirmed Problem 963280665 Tobacco use disorder (F17.200) Active confirmed Problem 96518152 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) Active confirmed Problem 915185747 Alcoholic hepatitis, unspecified whether ascites present (K70.10) 0 Active confirmed Problem 556824102 Anemia due to chronic blood loss (D50.0) Active confirmed Plan Of Treatment Pending Test Test Name Order Date CBC With Differential/Platelet* 08/19/19 21 CMP13 08/19/2020 UA/M w/rflx Culture, Comp 08/19/2020 Future Test Test Name Order Date Ultrasound : Right Upper Quadrant 2020 Insurance Providers Payer Name Payer Address Payer Phone Subscriber Number Group Number Insured Name Patient Relationship to Insured Coverage Start Date Coverage End Date [facility] [address] [place] [address] [id number] Royce Bullard Self - patient is the insured 9 Medical (General) History Surgical History Surgery Date(Month/Year) Hospitalization History Reason Date(Month/Year) MH- dehydration 05/2020
[2025-01-14 02:30] LABS: Basophils Absolute Auto 0.1 K/mm3 (0.0-0.1); Basophils Percent Auto 0.2 % (0.2-1.2); Eosinophils Absolute Auto 0.1 K/mm3 (0-0.3); Eosinophils Percent Auto 0.2 % (0-4.4); Hematocrit 44.5 % (42.0-52.0); Hemoglobin 15.8 g/dL (14.0-18.0); Immature Granulocyte Percent A 0.6 % (0-0.5); Lymphocytes Absolute Auto 0.86 K/mm3 (0.9-3.2); Lymphocytes Percent Auto 2.7 % (18.3-44.2); Mean Corpuscular HGB Conc 35.5 g/dl (32-36); Mean Corpuscular Hemoglobin 30.9 pg (26-34); Mean Corpuscular Volume 86.9 fl (80-100); Mean Platelet Volume 9.2 fl (7.4-10.4); Monocytes Absolute Auto 1.9 K/mm3 (0.1-0.6); Monocytes Percent Auto 5.9 % (2.6-8.5); Neutrophils Absolute Auto 28.4 K/mm3 (1.3-6.7); Neutrophils Percent Auto 90.4 % (45.5-73.1); Platelet Count Result 391 k/mm3 (150-375); Red Blood Count 5.12 M/mm3 (4.6-6.20); Red Cell Distribution Width 11.9 % (11.5-14.5); White Blood Count 31.5 K/mm3 (4.5-10.0)
[2025-01-14 02:36] LABS: Add Urine Microscopic? YES; Appearance Urine Clear (Clear); Bacteria Urine None Seen /hpf; Bilirubin Urine Negative (Negative); Blood Urine Trace (Negative); Color Urine Yellow (Yellow); Glucose Urine UA 2+ mg/dL (Negative); Ketones Urine Trace mg/dL (Negative); Leukocyte Esterase Ur Negative LEU/UL (Negative); Nitrate Urine Negative (Negative); Non Pathogenic Casts 0-2; Protein Urine 1+ mg/dL (Negative); Specific Grav Ur 1.034 (1.001-1.035); Squamous Epithelial Cell Urine None Seen /hpf (Few); WBC Urine 0-5 /hpf (0-3); pH Urine 7.5 (5.0-9.0)
[2025-01-14 02:43] LABS: Alanine Aminotransferase 31 U/L (6-50); Albumin Level 5.1 g/dL (3.5-5.1); Alkaline Phosphatase 57 U/L (38-126); Anion Gap 14 mmol/L (4-12); Aspartate Amino Transferase 34 U/L (17-59); Blood Urea Nitrogen 15 mg/dL (9-20); Calcium 9.8 mg/dL (8.4-10.2); Carbon Dioxide 24 mmol/L (22-30); Chloride 100 mmol/L (98-107); Estimated CRCL calculation 135 ml/min; Estimated Glomerular Filt Rate > 60; Glucose 200 mg/dL (65-110); Potassium 3.8 mmol/L (3.4-5.0); Sodium 138 mmol/L (137-145)
[2025-01-14 03:08] LABS: Lipase 6162 U/L (23-300)
--- NOTE | 2025-01-14 05:44 | ED.ABDPAIN ---
HPI - Abdominal Pain General Chief Complaint: Abdominal Pain Stated Complaint: really bad stomach pains Time Seen by Provider: 01/14/25 03:30 Source: patient Mode of arrival: ambulatory Limitations: no limitations History of Present Illness HPI narrative: Patient presents with epigastric abdominal pain starting approximately 12 hours prior to arrival. He notes the pain also seems to radiate slightly upwards. He describes it as a cramping sensation. He thought he might be constipated although his last bowel movement was on 01/13/2025. He tried a laxative but this did not help. He has been nauseated and has what he estimates to be 6 episodes of nonbloody nonbilious emesis although he states his nausea is better now. Last oral intake was 1 day prior. He denies any history of gastrointestinal issues. No previous abdominal surgeries (including still has gallbladder). He previously had a history of heavy alcohol consumption but he reports his last drink was 4 years ago and he has maintained sobriety since. He took 2 200 mg tablets of ibuprofen earlier today but otherwise denies heavy NSAID usage. He tried mairjuana gummies for his symptoms, no help. Related Data Allergies Allergy/AdvReac Type Severity Reaction Status Date / Time No Known Allergies Allergy Verified 01/14/25 02:14 [facility] Past Medical History Medical History Tobacco use disorder, moderate, dependence Altered mental status ADHD Weight loss Elevated liver enzymes Alcohol withdrawal Alcohol abuse Surgical History Surgical History History of wisdom tooth extraction History of circumcision Family History Family History Father Diabetes mellitus Acute myocardial infarction Social History Social History Smoking packs per day: 1 Smoking cigarettes per day: 20.0 Smoking status: Current every day smoker Tobacco type: cigarettes Alcohol intake: former Alcohol use details: sobriety since 2020 Substance use: current Substance use type: marijuana Lack of Transportation: No Lack of Food: Never True Current Housing: I Have Housing Concerned About Future Housing: No Difficulty Paying Gas/Electric Bills: No Difficulty Paying for Meds: No Currently Unemployed: No Education: High School Diploma/GED Difficulty w/ Childcare or Family Care: No Gender identity (if verbalized by the patient): Male Spiritual care concerns: No Exam Narrative: GENERAL: Well-appearing, well-nourished, and in no acute distress. HEAD: Normocephalic, atraumatic. EYES: Non injected, non icteric ENT: Nares clear, no rhinorrhea or epistaxis. Gross auditory acuity intact. Tacky mucous membranes. NECK: Supple. No meningismus. CHEST: Speaking in full sentences. No respiratory distress. HEART: Regular rate and rhythm. . ABDOMEN: Soft, nondistended. No rigidity or guarding. Not peritoneal EXTREMITIES: Normal range of motion. No lower extremity edema. SKIN: Warm, dry, no rash. NEURO: No focal deficits. Alert and oriented. Answering questions. Following commands. Normal speech without aphasia or dysarthria. PSYCH: Normal mood and affect. Course Vital Signs Vital signs: Vital Signs Temperature 97.9 F 01/14/25 02:15 Pulse Rate 60 01/14/25 02:15 Respiratory Rate 18 01/14/25 02:15 Blood Pressure 134/93 H 01/14/25 02:15 Pulse Oximetry 100 01/14/25 02:15 Oxygen Delivery Room Air 01/14/25 02:15 Temperature 97.8 F 01/14/25 06:01 Pulse Rate 57 L 01/14/25 07:12 Respiratory Rate 16 01/14/25 07:12 Blood Pressure 145/84 H 01/14/25 07:12 Pulse Oximetry 98 01/14/25 07:12 Oxygen Delivery Room Air 01/14/25 02:15 MDM - Abdominal Pain MDM Narrative Medical decision making narrative: Patient presents with epigastric abdominal pain approximately 12 hours duration. It is associated with nausea and emesis. In the emergency department he is afebrile with acceptable vital signs, mildly elevated diastolic blood pressure. Lipase greater than 6000 consistent with pancreatitis especially given location of patient's pain. Will proceed with CT imaging. He also has a marked leukocytosis and a mild thrombocytosis. He has hyperglycemia with an anion gap and no acidosis. I suspect this to be a degree of starvation ketosis although only trace ketones on urinalysis. LFTs are normal. IV fluids and analgesic medication ordered. Patient requesting that he be able to vape nicotine as he uses frequently and is having cravings. Did inform him that this would not be allowed but that a nicotine patch could be ordered. Patient reassessed at approximately 7:25 a.m.. He states his nausea continues to be gone and his pain had been getting better but is starting to come back. Will order another fluid bolus and analgesia as well as a RUQ US. Still having pain at 8:20 a.m.. Patient had not yet received the pain medicatoin ordered earlier. Ultrasound negative for acute process. Discussed with franchise consultant hospitalist , Dr Ball who recommends placing GI consult. Maintenance IV fluids as well as PRN pain medication ordered. Differential Diagnosis Differential diagnosis: Likely abdominal pain, constipation, diverticulitis, pancreatitis (Considered uncomplicated/complicated as well as various etiologies), small bowel obstruction and other (Gastritis; biliary etiology) Medical Records Attestation: I reviewed the patient's medical records. Medical records narrative: Suspect History of pancreatitis based on elevated lipase levels in 2019 Lab Data Attestation: I reviewed the patient's lab results. 01/14/25 02:25 01/14/25 02:25 Labs: Lab Results 01/14/25 01/14/25 01/14/25 Range/Units 02:21 02:25 06:16 WBC 31.5 H (4.5-10.0) K/mm3 RBC 5.12 (4.6-6.20) M/mm3 Hgb 15.8 (14.0-18.0) g/dL Hct 44.5 (42.0-52.0) % MCV 86.9 (80-100) fl MCH 30.9 (26-34) pg MCHC 35.5 (32-36) g/dl RDW 11.9 (11.5-14.5) % Plt Count 391 H D (150-375) k/mm3 MPV 9.2 (7.4-10.4) fl Immature Gran % (Auto) 0.6 H (0-0.5) % Neut % (Auto) 90.4 H (45.5-73.1) % Lymph % (Auto) 2.7 L (18.3-44.2) % [place] % (Auto) 5.9 (2.6-8.5) % Eos % (Auto) 0.2 (0-4.4) % Baso % (Auto) 0.2 (0.2-1.2) % Lymph # (Auto) 0.86 L (0.9-3.2) K/mm3 Granite # (Auto) 1.9 H (0.1-0.6) K/mm3 Eos # (Auto) 0.1 (0-0.3) K/mm3 Baso # (Auto) 0.1 (0.0-0.1) K/mm3 Abs Immat Gran (auto) 0.20 H (0.00-0.031) K/mm3 Absolute Neuts (auto) 28.4 H (1.3-6.7) K/mm3 Absolute Nucleated RBC 0.000 (0.0-0.012) K/mm3 Nucleated RBC % 0.0 (0.0-0.2) % Sodium 138 (137-145) mmol/L Potassium 3.8 (3.4-5.0) mmol/L Chloride 100 (98-107) mmol/L Carbon Dioxide 24 (22-30) mmol/L Anion Gap 14 H (4-12) mmol/L BUN 15 D (9-20) mg/dL Creatinine 0.65 L (0.7-1.3) mg/dL Estim Creat Clear Calc 135 ml/min Estimated GFR > 60 (59 - ) Glucose 200 H (65-110) mg/dL Calcium 9.8 (8.4-10.2) mg/dL Total Bilirubin 1.0 (0.2-1.3) mg/dL AST 34 (17-59) U/L ALT 31 (6-50) U/L Alkaline Phosphatase 57 (38-126) U/L Total Protein 8.0 (6.3-8.2) g/dL Albumin 5.1 (3.5-5.1) g/dL Lipase 6162 H (23-300) U/L Urine Color Yellow (Yellow) Urine Appearance Clear (Clear) Urine pH 7.5 (5.0-9.0) Ur Specific [place] 1.034 (1.001-1.035) Urine Protein 1+ H (Negative) mg/dL Urine Glucose (UA) 2+ H (Negative) mg/dL Urine Ketones Trace H (Negative) mg/dL Ur Blood (Man) Trace (Negative) Urine Nitrate Negative (Negative) Urine Bilirubin Negative (Negative) Urine Urobilinogen 1.0 (<2.0) mg/dL Leukocyte Esterase Rfl Negative (Negative) BARRON/UL Urine RBC 11-20 H (0-2) /hpf Urine WBC 0-5 (0-3) /hpf Ur Squamous Epith Cells None seen (Few) /hpf Urine Bacteria None seen /hpf Urine Casts 0-2 Urine Opiates Screen Negative (Negative) Urine Methadone Screen Negative (Negative) Ur Barbiturates Screen Negative (Negative) Ur Phencyclidine Scrn Negative (Negative) Ur Amphetamine Screen Negative (Negative) U Benzodiazepines Scrn Negative (Negative) Urine Cocaine Screen Negative (Negative) U Cannabinoids Screen Positive A (Negative) Influenza A (RT-PCR) Negative (Negative) Influenza B (RT-PCR) Negative (Negative) SARS-CoV-2 RNA (RT-PCR) Negative (Negative) Imaging Data Radiologist's impression: ITS Impressions Abdomen/Pelvis CT 01/14/25 06:59 Impression: Acute pancreatitis, as detailed above. No definite necrosis or pseudocyst identified. Abdomen Ultrasound 01/14/25 08:06 IMPRESSION: 1: Heterogeneous pancreas without discrete mass. Limited visualization. Refer to CT abdomen dated 01/14/2025. Discharge Plan Discharge Clinical Impression: Acute pancreatitis, Leukocytosis, Thrombocytosis, Hyperglycemia, Current every day nicotine vaping, Marijuana use Patient Disposition: Still a Patient Condition: Stable Instructions: Antibiotic Form Patient Language: Norwegian Prescriptions: No Action hydroxyzine HCl 50 mg tablet 50 mg PO BID PRN (Reason: anxiety) Qty: 90 1RF Follow-up/Referrals: Bradley Butterfield MD [Primary Care Provider] -
[2025-01-14] MEDS: MORPHINE SULFATE (*CRX) 4 MG/ML INJ IV PUSH ×7 (05:59→23:08)
[2025-01-14] MEDS: SODIUM CHLORIDE 0.9% IV 1,000 ML 999 ML IV CONT ×2 (05:59→08:32)
[2025-01-14 06:23] LABS: Amphetamine Screen Urine Negative (Negative); Barbiturate Screen Urine Negative (Negative); Benzodiazepines Screen Urine Negative (Negative); Cannabinoid Screen Urine Positive (Negative); Cocaine Screen Urine Negative (Negative); Methadone Screen Urine Negative (Negative); Opiate Screen Urine Negative (Negative); Phencyclidine Screen Urine Negative (Negative)
[2025-01-14] MEDS: NICOTINE (*PBKC) 14 MG PATCH 1 PATCH TRANSDERM (06:36)
[2025-01-14 06:57] LABS: Influenza A QL RT-PCR Negative (Negative); Influenza B QL RT-PCR Negative (Negative); SARS-CoV-2 RNA PCR Negative (Negative)
[2025-01-14] MEDS: HYDROmorphone HCL INJ (*CRX) 2 MG/ML VIAL 0.5 MG IV PUSH (08:31)
[2025-01-14] MEDS: SODIUM CHLORIDE 0.9% IV 1,000 ML 125 ML IV CONT (11:05)
--- NOTE | 2025-01-14 13:53 | ADMGEN ---
This patient, Royce Bullard, was admitted to [facility] Surg Room 321-01. Patient/family oriented to hospital policies and general routines including ID bracelet, bed and alarms, visiting hours, pain management, procedures, bathroom and other care routines, personal items, smoking policy, room service/diet, and visiting hours. Information on how to activate the Rapid Response Team has been discussed. Patient/Family are encouraged to report perceived risks to care and to ask questions if they do not understand what they are told or what they should do.
--- NOTE | 2025-01-14 15:58 | P.CONGI_ITS ---
Assessment and Plan Assessment and plan (1) Acute pancreatitis: Qualifiers: Pancreatitis type: unspecified pancreatitis type Code(s): K85.90 - Acute pancreatitis without necrosis or infection, unspecified Status: Acute Assessment and Plan: former alcoholic, first episode of pancreatitis noted leukocytosis, normal bun will give LR 150 ml/h to prevent necrosis and monitor hemoglobin check crp (2) Leukocytosis: Code(s): D72.829 - Elevated white blood cell count, unspecified Status: Acute Assessment and Plan: from pancreatitis monitor and continue with iv fluids diet when less pain (3) Marijuana use: Code(s): F12.90 - Cannabis use, unspecified, uncomplicated Status: Acute (4) Nausea and vomiting in adult: Code(s): R11.2 - Nausea with vomiting, unspecified Status: Acute Assessment and Plan: from pancreatitis (5) Epigastric pain: Code(s): R10.13 - Epigastric pain Status: Acute GI Consult Note Consult date/time: 01/14/25 15:58 Reason for consult: pancreatitis HPI: Royce Bullard is a 34 year old male former alcoholic (quite 4 years ago), marijuana use here with new onset of severe epigastric abdominal pain started yesterday, also had nausea with emesis x6, never had pancreatitis. Pain describes as a cramping sensation. Never had scopes. CT scan showed pancreatitis and had elevated lipase, normal liver enzymes. Review of Systems 2 Constitutional: Constitutional: Reports chills Eyes: Eyes: Denies blurry vision ENT: Reports Normal hearing present Cardiovascular: Cardiovascular: Denies chest pain Respiratory: Respiratory: Denies cough Gastrointestinal: Gastrointestinal: Reports abdominal pain, Reports nausea and Reports vomiting Genitourinary: Genitourinary: Denies dysuria Musculoskeletal: Musculoskeletal: Denies neck pain Integumentary/Breasts: Skin/Breast: Denies rash Neurologic: Denies Abnormal speech present Psychiatric: Psychiatric: Reports anxiety and Denies behavioral changes PMFSH Past Medical History Medical History Epigastric pain Nausea and vomiting in adult Tobacco use disorder, moderate, dependence Altered mental status ADHD Weight loss Elevated liver enzymes Alcohol withdrawal Alcohol abuse Surgical History Surgical History History of wisdom tooth extraction History of circumcision Family History Family History Father Diabetes mellitus Acute myocardial infarction Social History Social History Smoking packs per day: 1 Smoking cigarettes per day: 20.0 Smoking status: Current every day smoker Alcohol intake: former Alcohol use details: sobriety since 2020 Substance use: current Substance use type: marijuana Do You Feel Safe in your Home?: Yes Lack of Transportation: No Lack of Food: Never True Current Housing: I Have Housing Concerned About Future Housing: No Difficulty Paying Gas/Electric Bills: No Difficulty Paying for Meds: No Currently Unemployed: No Education: High School Diploma/GED Difficulty w/ Childcare or Family Care: No Gender identity (if verbalized by the patient): Male Spiritual care concerns: No Meds Home Medications and Allergies Home Medications ?Medication ?Instructions ?Recorded ?Confirmed ?Type hydroxyzine HCl 50 mg tablet 50 mg PO .hs anxiety 01/14/25 01/14/25 History Allergies Allergy/AdvReac Type Severity Reaction Status Date / Time No Known Allergies Allergy Verified 01/14/25 02:14 Vital Signs Vital Signs - 24 hr 01/14/25 02:15 01/14/25 06:01 01/14/25 07:12 Temperature 97.9 F 97.8 F Pulse Rate 60 57 L 57 L Respiratory Rate 18 18 16 Blood Pressure 134/93 H 117/98 H 145/84 H Pulse Oximetry 100 100 98 Oxygen Delivery Room Air 01/14/25 08:45 01/14/25 09:41 01/14/25 11:05 Temperature Pulse Rate 57 L 52 L Respiratory Rate 16 16 Blood Pressure 141/83 H 132/78 Pulse Oximetry 98 97 Oxygen Delivery Room Air 01/14/25 13:52 Temperature 98.8 F Pulse Rate 62 Respiratory Rate 20 Blood Pressure 123/65 Pulse Oximetry 100 Oxygen Delivery Exam 2 Const: General: comfortable and no acute distress HENMT: Face/Nose/Sinus: Normal nares present Eyes: General: appearance normal, both eyes and all related structures Neck: Neck: supple Resp: Auscultation: clear to auscultation bilaterally Cardio: Rate: regular rate Rhythm: regular rhythm GI: Inspection: non-distended GI Palp: Yes Soft to palpation and Yes Tenderness to palpation present (GI) (mild ttp in epigastric, no rebound) Skin: General skin exam: normal color Neuro: Speech: normal speech Motor exam (neuro): 5/5 motor strength present throughout Extrem: General: normal to inspection Psych: Mental Status: mental status grossly normal Results Labs 01/14/25 02:25 01/14/25 02:25 Labs: Short CBC 01/14/25 Range/Units 02:25 WBC 31.5 H (4.5-10.0) K/mm3 Hgb 15.8 (14.0-18.0) g/dL Hct 44.5 (42.0-52.0) % Plt Count 391 H D (150-375) k/mm3 BMP 01/14/25 02:25 Sodium 138 Potassium 3.8 Chloride 100 Carbon Dioxide 24 BUN 15 D Creatinine 0.65 L Glucose 200 H Calcium 9.8 Liver Function 01/14/25 Range/Units 02:25 Total Bilirubin 1.0 (0.2-1.3) mg/dL AST 34 (17-59) U/L ALT 31 (6-50) U/L Alkaline Phosphatase 57 (38-126) U/L Albumin 5.1 (3.5-5.1) g/dL Urine 01/14/25 Range/Units 02:21 Urine Color Yellow (Yellow) Urine Appearance Clear (Clear) Urine pH 7.5 (5.0-9.0) Ur Specific [place] 1.034 (1.001-1.035) Urine Protein 1+ H (Negative) mg/dL Urine Glucose (UA) 2+ H (Negative) mg/dL
--- NOTE | 2025-01-14 16:21 | PM.IMHP ---
H&P: HPI History of Present Illness Date/Time: 01/14/25 16:21 Chief Complaint: abd pain Narrative: 34-year-old male with no significant past medical history presented to the ER on account of abdominal pain and vomiting. Patient reported he started having symptoms about 2:00 p.m. yesterday described as sharp 8/10 intensity upper abdomen region associated with 6 episodes of vomiting.. Denies any prior episodes, no chest pain shortness her breath diarrhea lightheadedness or focal weakness. ER evaluation vital signs within normal limits, labs notable for WBC 31.[address] abdomen showed acute pancreatitis. Right upper quadrant ultrasound no biliary tree dilatation or stones noted. No liver enzymes elevation on labs. Review of Systems Review of Systems: All other systems were reviewed and negative except as noted in the HPI above PMFSH Past Medical History Medical History Epigastric pain Nausea and vomiting in adult Tobacco use disorder, moderate, dependence Altered mental status ADHD Weight loss Elevated liver enzymes Alcohol withdrawal Alcohol abuse Surgical History Surgical History History of wisdom tooth extraction History of circumcision Family History Family History Father Diabetes mellitus Acute myocardial infarction Social History Social History Smoking packs per day: 1 Smoking cigarettes per day: 20.0 Smoking status: Current every day smoker Alcohol intake: former Alcohol use details: sobriety since 2020 Substance use: current Substance use type: marijuana Do You Feel Safe in your Home?: Yes Lack of Transportation: No Lack of Food: Never True Current Housing: I Have Housing Concerned About Future Housing: No Difficulty Paying Gas/Electric Bills: No Difficulty Paying for Meds: No Currently Unemployed: No Education: High School Diploma/GED Difficulty w/ Childcare or Family Care: No Gender identity (if verbalized by the patient): Male Spiritual care concerns: No Meds Home Medications and Allergies Home Medications ?Medication ?Instructions ?Recorded ?Confirmed ?Type hydroxyzine HCl 50 mg tablet 50 mg PO .hs anxiety 01/14/25 01/14/25 History Allergies Allergy/AdvReac Type Severity Reaction Status Date / Time No Known Allergies Allergy Verified 01/14/25 02:14 Vital Signs Vital Signs - 24 hr 01/14/25 02:15 01/14/25 06:01 01/14/25 07:12 Temperature 97.9 F 97.8 F Pulse Rate 60 57 L 57 L Respiratory Rate 18 18 16 Blood Pressure 134/93 H 117/98 H 145/84 H Pulse Oximetry 100 100 98 Oxygen Delivery Room Air 01/14/25 08:45 01/14/25 09:41 01/14/25 11:05 Temperature Pulse Rate 57 L 52 L Respiratory Rate 16 16 Blood Pressure 141/83 H 132/78 Pulse Oximetry 98 97 Oxygen Delivery Room Air 01/14/25 13:52 Temperature 98.8 F Pulse Rate 62 Respiratory Rate 20 Blood Pressure 123/65 Pulse Oximetry 100 Oxygen Delivery Exam Narrative: General: alert and comfortable Eyes: EOMI, PERRLA ENNT External ears normal, Neck is supple, no masses, Respiratory systems: Clear to auscultation Cardiovascular S1, S2, normal rhythm, no murmur, rub, or gallop; no thrill or palpable murmurs on palpation. Gastrointestinal: soft, non-tender, and non-distended abdomen with no masses; BS present Skin: no rash, lesions, ulcerations, subcutaneous nodules or induration Musculoskeletal: no abnormality and no tenderness, normal ROM Neurologic: Alert and oriented x3, non focal Mental Status Exam: normal affect H&P: Results Labs Labs: Short CBC 01/14/25 Range/Units 02:25 WBC 31.5 H (4.5-10.0) K/mm3 Hgb 15.8 (14.0-18.0) g/dL Hct 44.5 (42.0-52.0) % Plt Count 391 H D (150-375) k/mm3 BMP 01/14/25 02:25 Sodium 138 Potassium 3.8 Chloride 100 Carbon Dioxide 24 BUN 15 D Creatinine 0.65 L Glucose 200 H Calcium 9.8 Liver Function 01/14/25 Range/Units 02:25 Total Bilirubin 1.0 (0.2-1.3) mg/dL AST 34 (17-59) U/L ALT 31 (6-50) U/L Alkaline Phosphatase 57 (38-126) U/L Albumin 5.1 (3.5-5.1) g/dL Urine 01/14/25 Range/Units 02:21 Urine Color Yellow (Yellow) Urine Appearance Clear (Clear) Urine pH 7.5 (5.0-9.0) Ur Specific [place] 1.034 (1.001-1.035) Urine Protein 1+ H (Negative) mg/dL Urine Glucose (UA) 2+ H (Negative) mg/dL Assessment and Plan Assessment and plan (1) Acute pancreatitis: Qualifiers: Pancreatitis type: unspecified pancreatitis type Code(s): K85.90 - Acute pancreatitis without necrosis or infection, unspecified Status: Acute Plan Acute pancreatitis Presented with pain and vomiting Lipase elevated and CTAP showed acute pancreatitis US liver no cholelithiasis and no CBD dilation and no elevated liver enzymes PRN pain control, IVF Lipid panel pending monitor DVT prophylaxis on Sq Lvoenox Full code SDM: Mother Millie Pandeyan Hospitalist [facility] Advance Care Plan I have confirmed that the patient's Advanced Care Plan is present, code status is documented, or surrogate decision maker is listed in patient medical record.: Yes Medication Reconciliation I have utilized all available resources to obtain, update and review the patients current medications (includes all prescriptions, OTC, herbals, cannabis, and nutritional supplements).: Yes
[2025-01-14] MEDS: LACTATED RINGERS 1,000 ML 100 ML IV CONT (17:53)
[2025-01-15] MEDS: MORPHINE SULFATE (*CRX) 4 MG/ML INJ IV PUSH ×10 (01:19→23:28)
[2025-01-15] MEDS: LACTATED RINGERS 1,000 ML 100 ML IV CONT ×3 (03:53→22:47)
[2025-01-15 06:00] VITALS: BP 147/69; PULSE 91; RESP 18; TEMP 36.9; O2SAT 99
[2025-01-15 06:44] LABS: Basophils Absolute Auto 0.1 K/mm3 (0.0-0.1); Basophils Percent Auto 0.2 % (0.2-1.2); Eosinophils Percent Auto 0.1 % (0-4.4); Hematocrit 44.8 % (42.0-52.0); Hemoglobin 14.9 g/dL (14.0-18.0); Immature Granulocyte Absolute 0.26 K/mm3 (0.00-0.031); Immature Granulocyte Percent A 0.9 % (0-0.5); Mean Corpuscular HGB Conc 33.3 g/dl (32-36); Mean Corpuscular Hemoglobin 30.1 pg (26-34); Mean Corpuscular Volume 90.5 fl (80-100); Mean Platelet Volume 9.7 fl (7.4-10.4); Monocytes Absolute Auto 2.4 K/mm3 (0.1-0.6); Monocytes Percent Auto 8.5 % (2.6-8.5); Neutrophils Percent Auto 85.3 % (45.5-73.1); Platelet Count Result 315 k/mm3 (150-375); Red Blood Count 4.95 M/mm3 (4.6-6.20); Red Cell Distribution Width 12.4 % (11.5-14.5); White Blood Count 28.1 K/mm3 (4.5-10.0)
[2025-01-15 06:56] LABS: Alanine Aminotransferase 18 U/L (6-50); Albumin Level 4.1 g/dL (3.5-5.1); Alkaline Phosphatase 85 U/L (38-126); Anion Gap 7 mmol/L (4-12); Aspartate Amino Transferase 29 U/L (17-59); Bilirubin,Total 1.1 mg/dL (0.2-1.3); Blood Urea Nitrogen 11 mg/dL (9-20); CRP 8.1 mg/dL (<1.0); Carbon Dioxide 25 mmol/L (22-30); Chloride 105 mmol/L (98-107); Estimated CRCL calculation 143 ml/min; Estimated Glomerular Filt Rate > 60; Glucose 87 mg/dL (65-110); Magnesium 2.1 mg/dL (1.6-2.3); Potassium 4.2 mmol/L (3.4-5.0); Sodium 137 mmol/L (137-145)
[2025-01-15] MEDS: ENOXAPARIN 40 MG/0.4 ML SYRINGE SUB-Q (08:45)
--- NOTE | 2025-01-15 13:20 | PM.IMPN ---
Progress Note: A&P Assessment and Plan (1) Acute pancreatitis: Qualifiers: Pancreatitis type: unspecified pancreatitis type Code(s): K85.90 - Acute pancreatitis without necrosis or infection, unspecified Status: Acute Plan Acute pancreatitis Presented with pain and vomiting Lipase elevated and CTAP showed acute pancreatitis US liver no cholelithiasis and no CBD dilation and no elevated liver enzymes PRN pain control, IVF Lipid panel pending Order lipid personnel monitor DVT prophylaxis on Sq Lvoenox Full code SDM: Mother Millie Bullard Subjective Date/time seen: 01/15/25 13:20 Interval history: reviewed ultrasound of right quadrant shows no significant finding. Patient still on NPO. Pending recommendation from GI. Patient has previous history of alcoholism and reports sober for 3 years. Patient's creatinine and hematocrit are normal. Ordered lipid panel. Review of Systems Review of Systems: All other systems were reviewed and negative except as noted in the HPI above Constitutional: Constitutional: Reports chills Eyes: Eyes: Denies blurry vision ENT: Reports Normal hearing present and Denies neck pain Cardiovascular: Cardiovascular: Denies chest pain Respiratory: Respiratory: Denies cough Gastrointestinal: Gastrointestinal: Reports abdominal pain, Reports nausea and Reports vomiting Genitourinary: Genitourinary: Denies dysuria Musculoskeletal: Musculoskeletal: Denies neck pain Integumentary/Breasts: Skin/Breast: Denies rash Neurologic: Reports Normal hearing present, Denies Abnormal speech present and Denies behavioral changes Psychiatric: Psychiatric: Reports anxiety and Denies behavioral changes Exam Narrative: General: alert and comfortable Eyes: EOMI, PERRLA ENNT External ears normal, Neck is supple, no masses, Respiratory systems: Clear to auscultation Cardiovascular S1, S2, normal rhythm, no murmur, rub, or gallop; no thrill or palpable murmurs on palpation. Gastrointestinal: soft, non-tender, and non-distended abdomen with no masses; BS present Skin: no rash, lesions, ulcerations, subcutaneous nodules or induration Musculoskeletal: no abnormality and no tenderness, normal ROM Neurologic: Alert and oriented x3, non focal Mental Status Exam: normal affect Const: General: comfortable and no acute distress HENMT: Face/Nose/Sinus: Normal nares present Eyes: General: appearance normal, both eyes and all related structures Neck: Neck: supple Resp: Auscultation: clear to auscultation bilaterally Cardio: Rate: regular rate Rhythm: regular rhythm GI: Inspection: non-distended Skin: General skin exam: normal color Neuro: General: gait normal Cranial nerves: Yes Normal hearing present Speech: normal speech and No Abnormal speech present Motor exam (neuro): 5/5 motor strength present throughout Extrem: General: normal to inspection Psych: Mental Status: mental status grossly normal Objective Data Vital Signs Vital Signs: Vital Signs - 24 hr 01/14/25 13:52 01/14/25 20:00 01/14/25 22:00 Temperature 98.8 F 98.6 F Pulse Rate 62 93 Respiratory Rate 20 18 Blood Pressure 123/65 150/78 H Pulse Oximetry 100 98 Oxygen Delivery Room Air 01/14/25 23:25 01/15/25 06:00 Temperature 98.4 F Pulse Rate 91 Respiratory Rate 18 Blood Pressure 147/69 H Pulse Oximetry 98 99 Oxygen Delivery Autopap Intake/Output Intake/Output: Intake & Output 01/12/25 01/13/25 01/14/25 01/15/25 23:59 23:59 23:59 23:59 Intake Total 1000 1999 Balance 1000 1999 Meds/Results Medications: Active Medications Generic Name Dose Route Start Last Admin Trade Name Freq PRN Reason Stop Dose Admin Acetaminophen 650 mg 01/14/25 08:32 Acetaminophen 325 Mg Tablet PO Q4H PRN Mild Pain (1-3) or Fever Enoxaparin Sodium 40 mg 01/15/25 09:00 01/15/25 08:45 Enoxaparin 40 Mg/0.4 Ml Syringe SUB-Q 40 mg DAILY CARLOS Administration Lactated Ringer's 1,000 mls @ 100 mls/hr 01/14/25 16:05 01/15/25 12:49 Lr - Lactated Ringers Iv IV CONT 100 mls/hr .Q10H CARLOS Administration Morphine Sulfate 4 mg 01/14/25 08:32 01/15/25 12:45 Morphine Sulfate (*Crx) 4 Mg/Ml Inj IV PUSH 4 mg Q2H PRN Administration Pain Rated 7-10 Nicotine 1 patch 01/15/25 13:05 Nicotine (*Pbkc) 14 Mg Patch TRANSDERM DAILY CARLOS Ondansetron HCl 4 mg 01/14/25 08:32 Ondansetron Inj 4 Mg/2 Ml Vial IV PUSH Q4H PRN Nausea Radiology Results: ITS Impressions Abdomen/Pelvis CT 01/14/25 06:59 Impression: Acute pancreatitis, as detailed above. No definite necrosis or pseudocyst identified. Abdomen Ultrasound 01/14/25 08:06 IMPRESSION: 1: Heterogeneous pancreas without discrete mass. Limited visualization. Refer to CT abdomen dated 01/14/2025. Labs Labs: Laboratory Results - last 24 hr 01/15/25 05:57 WBC 28.1 H RBC 4.95 Hgb 14.9 Hct 44.8 MCV 90.5 MCH 30.1 MCHC 33.3 RDW 12.4 Plt Count 315 MPV 9.7 Immature Gran % (Auto) 0.9 H Neut % (Auto) 85.3 H Lymph % (Auto) 5.0 L [place] % (Auto) 8.5 Eos % (Auto) 0.1 Baso % (Auto) 0.2 Lymph # (Auto) 1.40 [place] # (Auto) 2.4 H Eos # (Auto) 0.0 Baso # (Auto) 0.1 Abs Immat Gran (auto) 0.26 H Absolute Neuts (auto) 24.0 H Absolute Nucleated RBC 0.000 Nucleated RBC % 0.0 Sodium 137 Potassium 4.2 Chloride 105 Carbon Dioxide 25 Anion Gap 7 BUN 11 Creatinine 0.61 L Estim Creat Clear Calc 143 Estimated GFR > 60 Glucose 87 Calcium 9.0 Magnesium 2.1 Total Bilirubin 1.1 AST 29 ALT 18 Alkaline Phosphatase 85 C-Reactive Protein 8.1 H Total Protein 7.0 Albumin 4.1 Hospitalist MIPS Advance Care Plan I have confirmed that the patient's Advanced Care Plan is present, code status is documented, or surrogate decision maker is listed in patient medical record.: Yes Medication Reconciliation I have utilized all available resources to obtain, update and review the patients current medications (includes all prescriptions, OTC, herbals, cannabis, and nutritional supplements).: Yes
[2025-01-15 14:00] VITALS: BP 137/81; PULSE 104; RESP 18; TEMP 36.9; O2SAT 96
[2025-01-15] MEDS: NICOTINE (*PBKC) 14 MG PATCH 1 PATCH TRANSDERM (15:01)
--- NOTE | 2025-01-15 16:20 | P.PNGI_ITS ---
Progress Note: A&P Assessment and Plan (1) Acute pancreatitis: Qualifiers: Pancreatitis type: unspecified pancreatitis type Code(s): K85.90 - Acute pancreatitis without necrosis or infection, unspecified Status: Acute Assessment and Plan: unknown etiology sober for more than 4 years GB is normal by ultrasound liquid diet, on iv fluids with hgb down 14.9, elevated crp and leukocytosis. CT without necrosis (2) Nausea and vomiting in adult: Code(s): R11.2 - Nausea with vomiting, unspecified Status: Acute (3) Epigastric pain: Code(s): R10.13 - Epigastric pain Status: Acute Assessment and Plan: still on pain meds (4) Leukocytosis: Code(s): D72.829 - Elevated white blood cell count, unspecified Status: Acute Assessment and Plan: probably reactive from pancreatitis (5) Alcohol abuse, in remission: Code(s): F10.11 - Alcohol abuse, in remission Status: Acute Subjective Date/time seen: 01/15/25 16:20 Interval history: still epigastric pain, better with pain meds Review of Systems Review of Systems: All systems reviewed & are unremarkable except as noted in HPI and below Exam Const: General: comfortable and no acute distress HENMT: Face/Nose/Sinus: Normal nares present Eyes: General: appearance normal, both eyes and all related structures Neck: Neck: supple Resp: Auscultation: clear to auscultation bilaterally Cardio: Rate: regular rate Rhythm: regular rhythm GI: Inspection: non-distended GI Palp: Yes Soft to palpation and Yes Tenderness to palpation present (GI) (mild ttp in epigastric, no rebound) Skin: General skin exam: normal color Neuro: Speech: normal speech Motor exam (neuro): 5/5 motor strength present throughout Extrem: General: normal to inspection Psych: Mental Status: mental status grossly normal Objective Data Vital Signs Vital Signs: Vital Signs - 24 hr 01/14/25 20:00 01/14/25 22:00 01/14/25 23:25 Temperature 98.6 F Pulse Rate 93 Respiratory Rate 18 Blood Pressure 150/78 H Pulse Oximetry 98 98 Oxygen Delivery Room Air Autopap 01/15/25 06:00 01/15/25 14:00 Temperature 98.4 F 98.5 F Pulse Rate 91 104 H Respiratory Rate 18 18 Blood Pressure 147/69 H 137/81 Pulse Oximetry 99 96 Oxygen Delivery Intake/Output Intake/Output: Intake & Output 01/12/25 01/13/25 01/14/25 01/15/25 23:59 23:59 23:59 23:59 Intake Total 1000 1999 Balance 1000 1999 Meds/Results Medications: Active Medications Generic Name Dose Route Start Last Admin Trade Name Freq PRN Reason Stop Dose Admin Acetaminophen 650 mg 01/14/25 08:32 Acetaminophen 325 Mg Tablet PO Q4H PRN Mild Pain (1-3) or Fever Enoxaparin Sodium 40 mg 01/15/25 09:00 01/15/25 08:45 Enoxaparin 40 Mg/0.4 Ml Syringe SUB-Q 40 mg DAILY CARLOS Administration Lactated Ringer's 1,000 mls @ 100 mls/hr 01/14/25 16:05 01/15/25 12:49 Lr - Lactated Ringers Iv IV CONT 100 mls/hr .Q10H CARLOS Administration Morphine Sulfate 4 mg 01/14/25 08:32 01/15/25 14:55 Morphine Sulfate (*Crx) 4 Mg/Ml Inj IV PUSH 4 mg Q2H PRN Administration Pain Rated 7-10 Nicotine 1 patch 01/15/25 13:05 01/15/25 15:01 Nicotine (*Pbkc) 14 Mg Patch TRANSDERM 1 patch DAILY CRALOS Administration Ondansetron HCl 4 mg 01/14/25 08:32 Ondansetron Inj 4 Mg/2 Ml Vial IV PUSH Q4H PRN Nausea Radiology Results: ITS Impressions Abdomen/Pelvis CT 01/14/25 06:59 Impression: Acute pancreatitis, as detailed above. No definite necrosis or pseudocyst identified. Abdomen Ultrasound 01/14/25 08:06 IMPRESSION: 1: Heterogeneous pancreas without discrete mass. Limited visualization. Refer to CT abdomen dated 01/14/2025. Labs Labs: Laboratory Results - last 24 hr 01/15/25 05:57 WBC 28.1 H RBC 4.95 Hgb 14.9 Hct 44.8 MCV 90.5 MCH 30.1 MCHC 33.3 RDW 12.4 Plt Count 315 MPV 9.7 Immature Gran % (Auto) 0.9 H Neut % (Auto) 85.3 H Lymph % (Auto) 5.0 L [place] % (Auto) 8.5 Eos % (Auto) 0.1 Baso % (Auto) 0.2 Lymph # (Auto) 1.40 [place] # (Auto) 2.4 H Eos # (Auto) 0.0 Baso # (Auto) 0.1 Abs Immat Gran (auto) 0.26 H Absolute Neuts (auto) 24.0 H Absolute Nucleated RBC 0.000 Nucleated RBC % 0.0 Sodium 137 Potassium 4.2 Chloride 105 Carbon Dioxide 25 Anion Gap 7 BUN 11 Creatinine 0.61 L Estim Creat Clear Calc 143 Estimated GFR > 60 Glucose 87 Calcium 9.0 Magnesium 2.1 Total Bilirubin 1.1 AST 29 ALT 18 Alkaline Phosphatase 85 C-Reactive Protein 8.1 H Total Protein 7.0 Albumin 4.1
[2025-01-15 22:00] VITALS: BP 133/82; PULSE 105; RESP 18; TEMP 37; O2SAT 97
[2025-01-16] MEDS: MORPHINE SULFATE (*CRX) 4 MG/ML INJ IV PUSH ×3 (02:24→08:33)
[2025-01-16 06:00] VITALS: BP 136/75; PULSE 100; RESP 18; TEMP 37.1; O2SAT 99
[2025-01-16 06:33] LABS: Hematocrit 41.7 % (42.0-52.0); Hemoglobin 13.7 g/dL (14.0-18.0); Mean Corpuscular HGB Conc 32.9 g/dl (32-36); Mean Corpuscular Hemoglobin 30.2 pg (26-34); Mean Corpuscular Volume 91.9 fl (80-100); Mean Platelet Volume 9.9 fl (7.4-10.4); Platelet Count Result 285 k/mm3 (150-375); Red Blood Count 4.54 M/mm3 (4.6-6.20); Red Cell Distribution Width 12.3 % (11.5-14.5); White Blood Count 25.5 K/mm3 (4.5-10.0)
[2025-01-16 06:50] LABS: Alanine Aminotransferase 17 U/L (6-50); Albumin Level 3.8 g/dL (3.5-5.1); Alkaline Phosphatase 49 U/L (38-126); Anion Gap 9 mmol/L (4-12); Aspartate Amino Transferase 31 U/L (17-59); Bilirubin,Total 1.4 mg/dL (0.2-1.3); Blood Urea Nitrogen 10 mg/dL (9-20); Calcium 8.7 mg/dL (8.4-10.2); Carbon Dioxide 26 mmol/L (22-30); Chloride 100 mmol/L (98-107); Cholesterol 95 mg/dL (0-200); Estimated CRCL calculation 152 ml/min; Estimated Glomerular Filt Rate > 60; Glucose 64 mg/dL (65-110); HDL Direct 33 mg/dL; Potassium 4.1 mmol/L (3.4-5.0); Sodium 135 mmol/L (137-145); Total Protein 6.7 g/dL (6.3-8.2); Triglycerides 73 mg/dL (<150)
[2025-01-16 07:01] LABS: LDL Cholesterol Direct 40 mg/dL
[2025-01-16 08:02] LABS: Glucose Point of Care 79 mg/dl (65-105)
[2025-01-16] MEDS: LACTATED RINGERS 1,000 ML 100 ML IV CONT (08:33)
[2025-01-16] MEDS: NICOTINE (*PBKC) 14 MG PATCH 1 PATCH TRANSDERM (08:37)
[2025-01-16] MEDS: ENOXAPARIN 40 MG/0.4 ML SYRINGE SUB-Q (08:38)
[2025-01-16 08:49] LABS: Lipase 192 U/L (23-300)
[2025-01-16] MEDS: HYDROcodone/acetaminophen (*CRX) 10-325 MG TABLET 1 TAB PO (11:38)
[2025-01-16 13:55] VITALS: BP 134/81; PULSE 107; RESP 18; TEMP 36.2; O2SAT 97
--- NOTE | 2025-01-16 16:18 | PM.IMPN ---
Progress Note: A&P Assessment and Plan (1) Acute pancreatitis: Qualifiers: Pancreatitis type: unspecified pancreatitis type Code(s): K85.90 - Acute pancreatitis without necrosis or infection, unspecified Status: Acute Plan Acute pancreatitis Presented with pain and vomiting Lipase elevated and CTAP showed acute pancreatitis US liver no cholelithiasis and no CBD dilation and no elevated liver enzymes PRN pain control, IVF Reviewed lipid panel 0 evidence of hypertriglyceridemia monitor DVT prophylaxis on Sq Lvoenox Full code SDM: Mother Millie Bullard Subjective Date/time seen: 01/16/25 16:18 Interval history: Patient is able to tolerate food. Patient complains of left quadrant pain. Patient has leukocytosis possibly due to pancreatitis. No evidence of cholelithiasis, hypertriglyceridemia or alcoholism Review of Systems Review of Systems: All other systems were reviewed and negative except as noted in the HPI above Constitutional: Constitutional: Reports chills Eyes: Eyes: Denies blurry vision ENT: Reports Normal hearing present and Denies neck pain Cardiovascular: Cardiovascular: Denies chest pain Respiratory: Respiratory: Denies cough Gastrointestinal: Gastrointestinal: Reports abdominal pain, Reports nausea and Reports vomiting Genitourinary: Genitourinary: Denies dysuria Musculoskeletal: Musculoskeletal: Denies neck pain Integumentary/Breasts: Skin/Breast: Denies rash Neurologic: Reports Normal hearing present, Denies Abnormal speech present and Denies behavioral changes Psychiatric: Psychiatric: Reports anxiety and Denies behavioral changes Exam Narrative: General: alert and comfortable Eyes: EOMI, PERRLA ENNT External ears normal, Neck is supple, no masses, Respiratory systems: Clear to auscultation Cardiovascular S1, S2, normal rhythm, no murmur, rub, or gallop; no thrill or palpable murmurs on palpation. Gastrointestinal: soft, non-tender, and non-distended abdomen with no masses; BS present Skin: no rash, lesions, ulcerations, subcutaneous nodules or induration Musculoskeletal: no abnormality and no tenderness, normal ROM Neurologic: Alert and oriented x3, non focal Mental Status Exam: normal affect Const: General: comfortable and no acute distress HENMT: Face/Nose/Sinus: Normal nares present Eyes: General: appearance normal, both eyes and all related structures Neck: Neck: supple Resp: Auscultation: clear to auscultation bilaterally Cardio: Rate: regular rate Rhythm: regular rhythm GI: Inspection: non-distended Skin: General skin exam: normal color Neuro: General: gait normal Cranial nerves: Yes Normal hearing present Speech: normal speech and No Abnormal speech present Motor exam (neuro): 5/5 motor strength present throughout Extrem: General: normal to inspection Psych: Mental Status: mental status grossly normal Objective Data Vital Signs Vital Signs: Vital Signs - 24 hr 01/15/25 20:00 01/15/25 22:00 01/16/25 06:00 Temperature 98.6 F 98.7 F Pulse Rate 105 H 100 Respiratory Rate 18 18 Blood Pressure 133/82 136/75 Pulse Oximetry 97 99 Oxygen Delivery Room Air 01/16/25 13:55 Temperature 97.1 F L Pulse Rate 107 H Respiratory Rate 18 Blood Pressure 134/81 Pulse Oximetry 97 Oxygen Delivery Intake/Output Intake/Output: Intake & Output 01/13/25 01/14/25 01/15/25 01/16/25 23:59 23:59 23:59 23:59 Intake Total 1000 3396.7 1656.7 Balance 1000 3396.7 1656.7 Meds/Results Medications: Active Medications Generic Name Dose Route Start Last Admin Trade Name Freq PRN Reason Stop Dose Admin Acetaminophen 650 mg 01/14/25 08:32 Acetaminophen 325 Mg Tablet PO Q4H PRN Mild Pain (1-3) or Fever Hydrocodone Bitart/Acetaminophen 1 tab 01/16/25 08:56 Hydrocodone/Acetaminophen (*Crx) 5-325 Mg Tablet PO Q4H PRN Pain Rated 4-6 Hydrocodone Bitart/Acetaminophen 1 tab 01/16/25 08:56 01/16/25 11:38 Hydrocodone/Acetaminophen (*Crx) 10-325 Mg Tablet PO 1 tab Q4H PRN Administration Pain Rated 7-10 Enoxaparin Sodium 40 mg 01/15/25 09:00 01/16/25 08:38 Enoxaparin 40 Mg/0.4 Ml Syringe SUB-Q 40 mg DAILY CARLOS Administration Lactated Ringer's 1,000 mls @ 100 mls/hr 01/14/25 16:05 01/16/25 08:33 Lr - Lactated Ringers Iv IV CONT 100 mls/hr .Q10H CARLOS Administration Morphine Sulfate 4 mg 01/14/25 08:32 01/16/25 08:33 Morphine Sulfate (*Crx) 4 Mg/Ml Inj IV PUSH 4 mg Q2H PRN Administration Pain Rated 7-10 Nicotine 1 patch 01/15/25 13:05 01/16/25 08:37 Nicotine (*Pbkc) 14 Mg Patch TRANSDERM 1 patch DAILY CARLOS Administration Ondansetron HCl 4 mg 01/14/25 08:32 Ondansetron Inj 4 Mg/2 Ml Vial IV PUSH Q4H PRN Nausea Radiology Results: ITS Impressions Abdomen/Pelvis CT 01/14/25 06:59 Impression: Acute pancreatitis, as detailed above. No definite necrosis or pseudocyst identified. Abdomen Ultrasound 01/14/25 08:06 IMPRESSION: 1: Heterogeneous pancreas without discrete mass. Limited visualization. Refer to CT abdomen dated 01/14/2025. Labs Labs: Laboratory Results - last 24 hr 01/16/25 01/16/25 05:54 07:59 WBC 25.5 H RBC 4.54 L Hgb 13.7 L Hct 41.7 L MCV 91.9 MCH 30.2 MCHC 32.9 RDW 12.3 Plt Count 285 MPV 9.9 Sodium 135 L Potassium 4.1 Chloride 100 Carbon Dioxide 26 Anion Gap 9 BUN 10 Creatinine 0.57 L Estim Creat Clear Calc 152 Estimated GFR > 60 Glucose 64 L POC Capillary Glucose 79 Calcium 8.7 Total Bilirubin 1.4 H AST 31 ALT 17 Alkaline Phosphatase 49 Total Protein 6.7 Albumin 3.8 Triglycerides 73 Cholesterol 95 LDL Cholesterol Direct 40 HDL Direct 33 Lipase 192 Hospitalist MIPS Advance Care Plan I have confirmed that the patient's Advanced Care Plan is present, code status is documented, or surrogate decision maker is listed in patient medical record.: Yes Medication Reconciliation I have utilized all available resources to obtain, update and review the patients current medications (includes all prescriptions, OTC, herbals, cannabis, and nutritional supplements).: Yes
--- NOTE | 2025-01-16 17:15 | WPDGIPROGNO ---
Progress Note: A&P Assessment and Plan (1) Acute pancreatitis: Qualifiers: Pancreatitis type: unspecified pancreatitis type Code(s): K85.90 - Acute pancreatitis without necrosis or infection, unspecified Status: Acute Assessment and Plan: unknown etiology sober for more than 4 years GB is normal by ultrasound advancing diet, much better on iv fluids with hgb down 13.7, still leukocytosis. CT without necrosis (2) Nausea and vomiting in adult: Code(s): R11.2 - Nausea with vomiting, unspecified Status: Acute Assessment and Plan: resolved ok to advance to low fat diet (3) Epigastric pain: Code(s): R10.13 - Epigastric pain Status: Acute Assessment and Plan: still on pain meds (4) Leukocytosis: Code(s): D72.829 - Elevated white blood cell count, unspecified Status: Acute Assessment and Plan: probably reactive from pancreatitis (5) Alcohol abuse, in remission: Code(s): F10.11 - Alcohol abuse, in remission Status: Acute Subjective Date/time seen: 01/16/25 17:15 Interval history: eating more, less abdominal pain, he is walking Review of Systems Review of Systems: All systems reviewed & are unremarkable except as noted in HPI and below Exam Const: General: comfortable and no acute distress HENMT: Face/Nose/Sinus: Normal nares present Eyes: General: appearance normal, both eyes and all related structures Neck: Neck: supple Resp: Auscultation: clear to auscultation bilaterally Cardio: Rate: regular rate Rhythm: regular rhythm GI: Inspection: non-distended GI Palp: Yes Soft to palpation and Yes Tenderness to palpation present (GI) (mild ttp in epigastric, no rebound) Skin: General skin exam: normal color Neuro: Speech: normal speech Motor exam (neuro): 5/5 motor strength present throughout Extrem: General: normal to inspection Psych: Mental Status: mental status grossly normal Objective Data Vital Signs Vital Signs: Vital Signs - 24 hr 01/15/25 20:00 01/15/25 22:00 01/16/25 06:00 Temperature 98.6 F 98.7 F Pulse Rate 105 H 100 Respiratory Rate 18 18 Blood Pressure 133/82 136/75 Pulse Oximetry 97 99 Oxygen Delivery Room Air 01/16/25 13:55 Temperature 97.1 F L Pulse Rate 107 H Respiratory Rate 18 Blood Pressure 134/81 Pulse Oximetry 97 Oxygen Delivery Intake/Output Intake/Output: Intake & Output 01/13/25 01/14/25 01/15/25 01/16/25 23:59 23:59 23:59 23:59 Intake Total 1000 3396.7 1656.7 Balance 1000 3396.7 1656.7 Meds/Results Medications: Active Medications Generic Name Dose Route Start Last Admin Trade Name Freq PRN Reason Stop Dose Admin Acetaminophen 650 mg 01/14/25 08:32 Acetaminophen 325 Mg Tablet PO Q4H PRN Mild Pain (1-3) or Fever Hydrocodone Bitart/Acetaminophen 1 tab 01/16/25 08:56 Hydrocodone/Acetaminophen (*Crx) 5-325 Mg Tablet PO Q4H PRN Pain Rated 4-6 Hydrocodone Bitart/Acetaminophen 1 tab 01/16/25 08:56 01/16/25 11:38 Hydrocodone/Acetaminophen (*Crx) 10-325 Mg Tablet PO 1 tab Q4H PRN Administration Pain Rated 7-10 Enoxaparin Sodium 40 mg 01/15/25 09:00 01/16/25 08:38 Enoxaparin 40 Mg/0.4 Ml Syringe SUB-Q 40 mg DAILY CARLOS Administration Lactated Ringer's 1,000 mls @ 100 mls/hr 01/14/25 16:05 01/16/25 08:33 Lr - Lactated Ringers Iv IV CONT 100 mls/hr .Q10H CARLOS Administration Nicotine 1 patch 01/15/25 13:05 01/16/25 08:37 Nicotine (*Pbkc) 14 Mg Patch TRANSDERM 1 patch DAILY CARLOS Administration Ondansetron HCl 4 mg 01/14/25 08:32 Ondansetron Inj 4 Mg/2 Ml Vial IV PUSH Q4H PRN Nausea Radiology Results: ITS Impressions Abdomen/Pelvis CT 01/14/25 06:59 Impression: Acute pancreatitis, as detailed above. No definite necrosis or pseudocyst identified. Abdomen Ultrasound 01/14/25 08:06 IMPRESSION: 1: Heterogeneous pancreas without discrete mass. Limited visualization. Refer to CT abdomen dated 01/14/2025. Labs Labs: Laboratory Results - last 24 hr 01/16/25 01/16/25 05:54 07:59 WBC 25.5 H RBC 4.54 L Hgb 13.7 L Hct 41.7 L MCV 91.9 MCH 30.2 MCHC 32.9 RDW 12.3 Plt Count 285 MPV 9.9 Sodium 135 L Potassium 4.1 Chloride 100 Carbon Dioxide 26 Anion Gap 9 BUN 10 Creatinine 0.57 L Estim Creat Clear Calc 152 Estimated GFR > 60 Glucose 64 L POC Capillary Glucose 79 Calcium 8.7 Total Bilirubin 1.4 H AST 31 ALT 17 Alkaline Phosphatase 49 Total Protein 6.7 Albumin 3.8 Triglycerides 73 Cholesterol 95 LDL Cholesterol Direct 40 HDL Direct 33 Lipase 192
[2025-01-16] MEDS: ACETAMINOPHEN 325 MG TABLET 650 MG PO (17:48)
[2025-01-16 20:17] VITALS: BP 136/74; PULSE 92; RESP 18; TEMP 36.5; O2SAT 97
--- NOTE | 2025-01-16 21:23 | PC.NURSE ---
Per patient request his iv fluids are not infusing, patient stated he is eating and drinking fine, he is not having any pain. His fluids are on hold at this time. Education provided.
[2025-01-16] MEDS: HYDROcodone/acetaminophen (*CRX) 5-325 MG TABLET 1 TAB PO (22:47)
[2025-01-17] MEDS: ACETAMINOPHEN 325 MG TABLET 650 MG PO ×2 (03:57→11:59)
[2025-01-17 05:25] VITALS: BP 106/76; PULSE 90; RESP 20; TEMP 36.2; O2SAT 99
[2025-01-17 06:34] LABS: Hematocrit 39.8 % (42.0-52.0); Hemoglobin 13.5 g/dL (14.0-18.0); Mean Corpuscular HGB Conc 33.9 g/dl (32-36); Mean Corpuscular Hemoglobin 30.3 pg (26-34); Mean Corpuscular Volume 89.2 fl (80-100); Mean Platelet Volume 9.5 fl (7.4-10.4); Platelet Count Result 271 k/mm3 (150-375); Red Blood Count 4.46 M/mm3 (4.6-6.20); White Blood Count 21.1 K/mm3 (4.5-10.0)
[2025-01-17 06:52] LABS: Alanine Aminotransferase 17 U/L (6-50); Alkaline Phosphatase 66 U/L (38-126); Anion Gap 5 mmol/L (4-12); Aspartate Amino Transferase 26 U/L (17-59); Bilirubin,Total 1.2 mg/dL (0.2-1.3); Blood Urea Nitrogen 9 mg/dL (9-20); Carbon Dioxide 31 mmol/L (22-30); Chloride 101 mmol/L (98-107); Estimated CRCL calculation 139 ml/min; Estimated Glomerular Filt Rate > 60; Glucose 101 mg/dL (65-110); Potassium 3.2 mmol/L (3.4-5.0); Sodium 137 mmol/L (137-145); Total Protein 7.1 g/dL (6.3-8.2)
[2025-01-17] MEDS: NICOTINE (*PBKC) 14 MG PATCH 1 PATCH TRANSDERM (08:37)
[2025-01-17] MEDS: POTASSIUM CHLORIDE 20 MEQ ER TABLET 40 MEQ PO (11:58)
[2025-01-17 13:47] LABS: Potassium 3.2 mmol/L (3.4-5.0)
[2025-01-17 14:00] VITALS: BP 122/79; PULSE 92; RESP 18; TEMP 36.1; O2SAT 96
[2025-01-17] MEDS: POTASSIUM CHLORIDE 20 MEQ ER TABLET 60 MEQ PO (15:15)
--- NOTE | 2025-01-17 15:54 | WPDGIPROGNO ---
Progress Note: A&P Assessment and Plan (1) Acute pancreatitis: Qualifiers: Pancreatitis type: unspecified pancreatitis type Code(s): K85.90 - Acute pancreatitis without necrosis or infection, unspecified Status: Acute Assessment and Plan: unknown etiology sober for more than 4 years GB is normal by ultrasound most likely going home today then can follow-up office in 3-4 weeks (2) Nausea and vomiting in adult: Code(s): R11.2 - Nausea with vomiting, unspecified Status: Acute Assessment and Plan: resolved tolerating low fat diet (3) Epigastric pain: Code(s): R10.13 - Epigastric pain Status: Acute Assessment and Plan: resolved (4) Leukocytosis: Code(s): D72.829 - Elevated white blood cell count, unspecified Status: Acute Assessment and Plan: probably reactive from pancreatitis Subjective Date/time seen: 01/17/25 15:54 Interval history: no nausea, pain almost gone and tolerating diet he is probably going home today (K was low earlier today and getting more replacement) Review of Systems Review of Systems: All systems reviewed & are unremarkable except as noted in HPI and below Exam Const: General: comfortable and no acute distress HENMT: Face/Nose/Sinus: Normal nares present Eyes: General: appearance normal, both eyes and all related structures Neck: Neck: no JVD Resp: Auscultation: clear to auscultation bilaterally Cardio: Rate: regular rate Rhythm: regular rhythm GI: Inspection: non-distended GI Palp: Yes Soft to palpation Skin: General skin exam: normal color Neuro: General: gait normal Speech: normal speech Extrem: General: normal to inspection Psych: Mental Status: mental status grossly normal Objective Data Vital Signs Vital Signs: Vital Signs - 24 hr 01/16/25 20:17 01/17/25 05:25 01/17/25 14:00 Temperature 97.7 F 97.2 F L 96.9 F L Pulse Rate 92 90 92 Respiratory Rate 18 20 18 Blood Pressure 136/74 106/76 122/79 Pulse Oximetry 97 99 96 Intake/Output Intake/Output: Intake & Output 01/14/25 01/15/25 01/16/25 01/17/25 23:59 23:59 23:59 23:59 Intake Total 1000 3396.7 1896.7 1030 Balance 1000 3396.7 1896.7 1030 Meds/Results Medications: Active Medications Generic Name Dose Route Start Last Admin Trade Name Freq PRN Reason Stop Dose Admin Acetaminophen 650 mg 01/14/25 08:32 01/17/25 11:59 Acetaminophen 325 Mg Tablet PO 650 mg Q4H PRN Administration Mild Pain (1-3) or Fever Hydrocodone Bitart/Acetaminophen 1 tab 01/16/25 08:56 01/16/25 22:47 Hydrocodone/Acetaminophen (*Crx) 5-325 Mg Tablet PO 1 tab Q4H PRN Administration Pain Rated 4-6 Hydrocodone Bitart/Acetaminophen 1 tab 01/16/25 08:56 01/16/25 11:38 Hydrocodone/Acetaminophen (*Crx) 10-325 Mg Tablet PO 1 tab Q4H PRN Administration Pain Rated 7-10 Enoxaparin Sodium 40 mg 01/15/25 09:00 01/17/25 08:43 Enoxaparin 40 Mg/0.4 Ml Syringe SUB-Q Not Given DAILY CARLOS Lactated Ringer's 1,000 mls @ 100 mls/hr 01/14/25 16:05 01/16/25 21:25 Lr - Lactated Ringers Iv IV CONT Not Given .Q10H CARLOS Nicotine 1 patch 01/15/25 13:05 01/17/25 08:37 Nicotine (*Pbkc) 14 Mg Patch TRANSDERM 1 patch DAILY CARLOS Administration Ondansetron HCl 4 mg 01/14/25 08:32 Ondansetron Inj 4 Mg/2 Ml Vial IV PUSH Q4H PRN Nausea Radiology Results: ITS Impressions Abdomen/Pelvis CT 01/14/25 06:59 Impression: Acute pancreatitis, as detailed above. No definite necrosis or pseudocyst identified. Abdomen Ultrasound 01/14/25 08:06 IMPRESSION: 1: Heterogeneous pancreas without discrete mass. Limited visualization. Refer to CT abdomen dated 01/14/2025. Labs Labs: Laboratory Results - last 24 hr 01/17/25 01/17/25 06:13 13:11 WBC 21.1 H RBC 4.46 L Hgb 13.5 L Hct 39.8 L MCV 89.2 MCH 30.3 MCHC 33.9 RDW 12.0 Plt Count 271 MPV 9.5 Sodium 137 Potassium 3.2 L 3.2 L Chloride 101 Carbon Dioxide 31 H Anion Gap 5 BUN 9 Creatinine 0.63 L Estim Creat Clear Calc 139 Estimated GFR > 60 Glucose 101 Calcium 9.0 Magnesium 2.0 Total Bilirubin 1.2 AST 26 ALT 17 Alkaline Phosphatase 66 Total Protein 7.1 Albumin 4.0
--- NOTE | 2025-01-17 16:54 | PM.DS ---
DS: Admitting Diagnosis Discharge Date 01/17/2025 Admitting Diagnosis Abdominal pain DS: Discharge Diagnosis Discharge Diagnosis (1) Acute pancreatitis: Qualifiers: Pancreatitis type: unspecified pancreatitis type Code(s): K85.90 - Acute pancreatitis without necrosis or infection, unspecified Status: Acute Plan Acute pancreatitis Presented with pain and vomiting Lipase elevated and CTAP showed acute pancreatitis US liver no cholelithiasis and no CBD dilation and no elevated liver enzymes PRN pain control, IVF Reviewed lipid panel 0 evidence of hypertriglyceridemia monitor DVT prophylaxis on Sq Lvoenox Full code SDM: Mother Millie Bullard DS: Summary Hospital Course Hospital Course: 34-year-old male with no significant past medical history presented to the ER on account of abdominal pain and vomiting. Patient reported he started having symptoms about 2:00 p.m. yesterday described as sharp 8/10 intensity upper abdomen region associated with 6 episodes of vomiting.. Denies any prior episodes, no chest pain shortness her breath diarrhea lightheadedness or focal weakness. ER evaluation vital signs within normal limits, labs notable for WBC 31.[address] abdomen showed acute pancreatitis. Right upper quadrant ultrasound no biliary tree dilatation or stones noted. No liver enzymes elevation on labs. Abdominal ultrasound: Heterogeneous pancreas without discrete mass. Abdominal CT: Acute pancreatitis, as detailed above. No definite necrosis or pseudocyst identified. Patient is sober for almost 3 years. Currently denies any alcoholism. Patient vapes and drinks monster. No evidence of gallstone. If patient gets recurrent pancreatitis he needs to follow-up with non food receiving clerk. On the day of discharge, the patient was seen and examined. Vital signs were stable. Physical exam were stable and labs were reviewed at length. Discharge instructions, medications, and follow-up appointments were discussed with the patient at length and all day questions were answered. ER warnings were given. Status at Discharge Cognitive/behavioral status at discharge: Stable Time Spent with Patient Time attestation: Total time spent providing and/or coordinating discharge services: 45 minutes Exam Narrative: General: alert and comfortable Eyes: EOMI, PERRLA ENNT External ears normal, Neck is supple, no masses, Respiratory systems: Clear to auscultation Cardiovascular S1, S2, normal rhythm, no murmur, rub, or gallop; no thrill or palpable murmurs on palpation. Gastrointestinal: soft, non-tender, and non-distended abdomen with no masses; BS present Skin: no rash, lesions, ulcerations, subcutaneous nodules or induration Musculoskeletal: no abnormality and no tenderness, normal ROM Neurologic: Alert and oriented x3, non focal Mental Status Exam: normal affect Const: General: comfortable and no acute distress HENMT: Face/Nose/Sinus: Normal nares present Eyes: General: appearance normal, both eyes and all related structures Neck: Neck: supple Resp: Auscultation: clear to auscultation bilaterally Cardio: Rate: regular rate Rhythm: regular rhythm GI: Inspection: non-distended Skin: General skin exam: normal color Neuro: General: gait normal Cranial nerves: Yes Normal hearing present Speech: normal speech and No Abnormal speech present Motor exam (neuro): 5/5 motor strength present throughout Extrem: General: normal to inspection Psych: Mental Status: mental status grossly normal DS: Data Data Completed and Pending Labs on day of discharge: Labs from last 24 hours 01/17/25 01/17/25 13:11 06:13 WBC 21.1 H RBC 4.46 L Hgb 13.5 L Hct 39.8 L MCV 89.2 MCH 30.3 MCHC 33.9 RDW 12.0 Plt Count 271 MPV 9.5 Sodium 137 Potassium 3.2 L 3.2 L Chloride 101 Carbon Dioxide 31 H Anion Gap 5 BUN 9 Creatinine 0.63 L Estim Creat Clear Calc 139 Estimated GFR > 60 Glucose 101 Calcium 9.0 Magnesium 2.0 Total Bilirubin 1.2 AST 26 ALT 17 Alkaline Phosphatase 66 Total Protein 7.1 Albumin 4.0 Imaging Radiologist's impression: ITS Impressions Abdomen/Pelvis CT 01/14/25 06:59 Impression: Acute pancreatitis, as detailed above. No definite necrosis or pseudocyst identified. Abdomen Ultrasound 01/14/25 08:06 IMPRESSION: 1: Heterogeneous pancreas without discrete mass. Limited visualization. Refer to CT abdomen dated 01/14/2025. Discharge Plan Discharge Attending physician on discharge: Ricardo Otero Consulting providers: Troy Liang Discharging Clinician: Ricardo Otero Patient Disposition: Home Activity: as tolerated Diet: low fat Discharge Instructions: Needs to follow-up with claims consultant in a week Needs to follow-up with PCP In case of abdominal pain, nausea, vomiting please seek immediate medical care Patient Instructions: Antibiotic Form Patient Language: Greek Stand Alone Forms: General Discharge Information Follow-up/Referrals: Bradley Butterfield MD [Primary Care Provider] - Troy Liang MD [Physician] - Discharge Medications: Continued hydroxyzine HCl 50 mg tablet 50 mg PO .hs Date of admission: 01/15/25 09:32 Primary Care Provider: Bradley Butterfield Admitting Provider: Sukh Ball Attending physician on admission: Sukh Ball Condition: Stable
[2025-01-17 18:32] LABS: Potassium 3.5 mmol/L (3.4-5.0)
--- NOTE | 2025-01-17 18:50 | PC.NURSE ---
Internet down to all WOWs. All meds verified and keyed via desktop.
== END 2025-01-17 19:05 | disposition home or self-care (01) | DRG 440 ==
LOC: ANHED 09:00 → ANH3MEDSUR 09:16
PROVIDERS: Internal Medicine; Admitting Provider Internal Medicine; Emergency Provider Student in an Organized Health Care Education/Training Program; PCP Family Medicine; Visit Provider General Practice
DX: K85.90 Acute pancreatitis without necrosis or infection, unspecified (principal); D75.839 Thrombocytosis, unspecified; F12.90 Cannabis use, unspecified, uncomplicated; F17.290 Nicotine dependence, other tobacco product, uncomplicated; F90.9 Attention-deficit hyperactivity disorder, unspecified type; F10.11 Alcohol abuse, in remission; Z20.822 Contact with and (suspected) exposure to COVID-19
CPT/HCPCS: 36415; 74177; 76705; 80053; 80061; 80307; 81001; 82948; 83690; 83735; 84132; 85025; 85027; 86140; 87636; 96361; 96374; 96375; 96376; 99285; A9270; G0378; J1171; J1650; J2270; J7030; J7120; Q9967

== ENCOUNTER 2025-02-01 14:27 | Outpatient (CLI) | payer BC, SELFPAY ==
[2025-02-01 15:10] LABS: Hematocrit 39.4 % (42.0-52.0); Mean Corpuscular Hemoglobin 29.9 pg (26-34); Mean Corpuscular Volume 90.6 fl (80-100); Platelet Count Result 485 k/mm3 (150-375); Red Blood Count 4.35 M/mm3 (4.6-6.20); Red Cell Distribution Width 12.3 % (11.5-14.5)
[2025-02-01 15:29] LABS: Alanine Aminotransferase 21 U/L (6-50); Albumin Level 4.4 g/dL (3.5-5.1); Alkaline Phosphatase 49 U/L (38-126); Anion Gap 9 mmol/L (4-12); Aspartate Amino Transferase 25 U/L (17-59); Bilirubin,Total 0.4 mg/dL (0.2-1.3); Blood Urea Nitrogen 16 mg/dL (9-20); Calcium 9.5 mg/dL (8.4-10.2); Carbon Dioxide 27 mmol/L (22-30); Chloride 104 mmol/L (98-107); Estimated Glomerular Filt Rate > 60; Glucose 127 mg/dL (65-110); Lipase 64 U/L (23-300); Potassium 3.8 mmol/L (3.4-5.0); Sodium 140 mmol/L (137-145); Total Protein 7.5 g/dL (6.3-8.2)
== END 2025-02-01 14:28 | disposition home or self-care (01) ==
LOC: ANHLAB 14:27
PROVIDERS: PCP Family Medicine; Visit Provider Nurse Practitioner Family
DX: K85.90 Acute pancreatitis without necrosis or infection, unspecified (principal)
CPT/HCPCS: 36415; 80048; 80076; 83690; 85027